=== PATIENT | female | born 1995 | race Caucasian/White ===

== ENCOUNTER 2022-01-23 14:53 | Observation (INO) | payer OTHER, SELFPAY ==
--- NOTE | 2022-01-23 15:23 | DI.US.S_ITS ---
PROCEDURE: US OB FOLLOW UP INDICATIONS: gestational Hypertension, questinable size OUTSIDE/PRIOR DATING DATA: Last menstrual period (LMP): 05/21/2021. LMP-based estimated date of delivery (DEBORAH): 02/25/2022. First dating scan (date and location): 01/23/2022. Estimated date of delivery (DEBORAH) from first dating scan: 02/04/2022. TECHNIQUE: Real-time scanning was performed of the fetus, with image documentation and biometric measurements. COMPARISON: None. FINDINGS: General: A single living intrauterine gestation is present. Presentation: Vertex. Placenta: Placental position is anterior , without previa. Amniotic fluid index: 9.9 cm, normal range is 5-24 cm. Single deepest vertical pocket is 4.1 cm. heart rate: 157 beats per minute. Maternal cervical canal: Not obtained biometrics: Biparietal diameter: 8.8 cm 35 weeks 4 days Head circumference: 33.2 cm 38 weeks 5 days Abdominal circumference: 35.5 cm 39 weeks 3 days Femur length: 7.7 cm 39 weeks 3 days Ultrasound estimated gestational age: 35 weeks 2 days Composite gestational age from present scan: 30 weeks 2 days Estimated weight and percentile: 3593 g, greater than 99th percentile Other: BPP: Tone: 2 Movement: 2 Respiration: 0 Largest pocket: 2 IMPRESSION: Single live into with ultrasound gestational age today of 38 weeks 2 days. BPP 10/22 We strive to produce accurate, complete, and clear reports of imaging services. To assist us in improving patient care, this report was composed using standard report templates and voice recognition software. Therefore, it may contain abnormal punctuation, insertions and/or omissions. Occasional wrong-word or sound-alike substitutions may occur. Though we review the report and make efforts to correct it, we do recommend that the report be read carefully in proper context to recognize any text inaccuracies. Dictated by: Lydia Reinoso M.D. on 01/23/2022 at 17:10 Approved by: Lydia Reinoso M.D. on 01/23/2022 at 17:12
[2022-01-23 15:37] LABS: Aspartate Aminotransferase 24 IU/L (14-36); Blood Urea Nitrogen 6 mg/dL (7-17); Estimated Glomerular Filt Rate > 60 mL/min (>60); Uric Acid 4.2 mg/dL (2.5-6.2)
[2022-01-23 15:41] VITALS: BP 156/86; PULSE 86
[2022-01-23] MEDS: LABETALOL 100 MG TABLET 200 MG PO (15:41)
[2022-01-23 15:43] LABS: Add Manual Diff / Slide Review NO; Basophils Absolute Auto 0 /uL (0-100); Basophils Percent Auto 0.2 % (0-2); Eosinophils Absolute Auto 100 /uL (0-450); Eosinophils Percent Auto 0.7 % (2-4); Hematocrit 33.8 % (36-46); Hemoglobin 11.2 g/dL (12.0-16.0); Lymphocytes Absolute Auto 2800 /uL (1100-4500); Lymphocytes Percent Auto 22.1 % (25-40); Mean Corpuscular Hemoglobin 26.3 PG (26-34); Mean Corpuscular Volume 79.7 fL (80-100); Monocytes Absolute Auto 1000 /uL (0-900); Neutrophils Absolute Auto 8700 /uL (1500-7000); Platelet Count 259 X10^3/uL (150-400); Red Blood Cell Count 4.24 X10^6/uL (4.0-5.2); Red Cell Distribution Width 16.2 % (11.6-14.8); White Blood Cell Count 12.6 X10^3/uL (4.5-11.0)
[2022-01-23 15:49] LABS: Uric Acid 4.2 mg/dL (2.5-6.2)
--- NOTE | 2022-01-23 17:41 | P.TNLD_ITS ---
Visit Information Visit Information Date of evaluation: 01/23/22 Primary OB Provider: Milton Joseph Comments/Additional reasons for admission: Patient presented for her initial OB visit with [facility] earlier today after receiving initial care in [place] followed by care in [place] and now here in [facility]. Initial blood pressure in the office was 160/100 with 1+ protein on dip. Following her initial visit in the office, she was transferred to the [facility] for further evaluation. Since arriving on the , patient's blood pressures have been labile with her maximum blood pressure of 180/86 and her most recent at 5:45 p.m. was 174/83. Vital Signs Vital Signs: Vital Signs - 8 hr 01/23/22 15:41 Pulse Rate 86 Blood Pressure 156/86 H [facility] Medical History (Updated 01/23/22 @ 18:05 by Milton Joseph MD) Obesity Surgical History (Updated 01/20/22 @ 14:41 by Amira Palma RN) H/O oral surgery History of tonsillectomy Family History (Updated 01/20/22 @ 14:45 by Amira Palma RN) Family/Other Breast cancer Grandfather Myocardial infarction Father Hypertension Mother Contact dermatitis Grandmother Obesity Social History marital status: number of children: 0 household members: spouse lives independently: Yes housing: other pets and animals: Yes (1 dog) education level: college occupational status: unemployed current occupational exposures/hazards: No special ish needs: No travel history: recent seatbelt use: always firearms in home: No do you feel safe at home: Yes Smoking Status: Never smoker second hand exposure: No alcohol intake: former substance use type: does not use during the past year weight has: increased > 10 lbs well-balanced diet: rarely or never daily servings fruits/ve-1 caffeine: Yes (ice tea and diet cola occasionally) Type(s) of exercise: walking Exam Vital Signs (past 8 hours): - 01/23/22 15:41 Pulse Rate 86 Blood Pressure 156/86 H Const General: cooperative and anxious Nutritional Appearance: obese Orientation: alert and oriented x3 HENMT Head: normal to inspection, normocephalic and atraumatic Face and sinus: face symmetric Eyes General: appearance normal, both eyes and all related structures Conjunctivae: conjunctivae normal Sclera: sclerae normal Resp Effort & Inspection: normal respiratory effort and able to speak in complete sentences Auscultation: clear to auscultation bilaterally Cardio Rate: regular rate Rhythm: regular rhythm Heart Sounds: S1 normal, S2 normal and no murmurs GI Inspection: normal to inspection Palpation: soft and no hepatosplenomegaly Uterus Location (Fundal Height): 40 Presentation: vertex Estimated Weight (lbs): 8 Neuro Cranial Nerves: CN's II-XI intact bilaterally DTR's: Rt Patellar: 2+ and Lt Patellar: 2+ Extrem Right lower extremity: normal to inspection and edema Details: 1+ Left lower extremity: edema Details: 1+ Psych Appearance: grossly normal Mental Status: mental status grossly normal Speech and Movement: speech and movement normal Mood: congruent mood Affect: normal affect Attitude: cooperative Thought Process: normal Thought Content: normal Judgment: judgment good Objective Imaging OB Growth US and BPP: Radiologist's impression: PROCEDURE:? US OB FOLLOW UP ? INDICATIONS:? gestational Hypertension, questinable size ? OUTSIDE/PRIOR DATING DATA:? Last menstrual period (LMP):? 05/21/2021.? LMP-based estimated date of delivery (DEBORAH):? 02/25/2022.? First dating scan (date and location):? 01/23/2022.? Estimated date of delivery (DEBORAH) from first dating scan:? 02/04/2022. ? TECHNIQUE: Real-time scanning was performed of the fetus, with image documentation and biometric measurements.? ? COMPARISON:? None. ? FINDINGS:? ? General:? A single living intrauterine gestation is present.? Presentation:? Vertex.? Placenta:? Placental position is anterior , without previa.? ? Amniotic fluid index:? 9.9 cm, normal range is 5-24 cm.? Single deepest vertical pocket is 4.1 cm. heart rate:? 157 beats per minute.? Maternal cervical canal:? Not obtained biometrics:? Biparietal diameter:? 8.8 cm 35 weeks 4 days Head circumference:? 33.2 cm 38 weeks 5 days Abdominal circumference:? 35.5 cm 39 weeks 3 days Femur length:? 7.7 cm 39 weeks 3 days Ultrasound estimated gestational age:? 35 weeks 2 days Composite gestational age from present scan:? 38 weeks 2 days Estimated weight and percentile:? 3593 g, greater than 99th percentile ? Other:? ? BPP:? Tone:? 2 ? Movement:? 2 ? Respiration:? 0 ? Largest pocket:? 2 ? IMPRESSION:? ? Single live into with ultrasound gestational age today of 38 weeks 2 days. ? BPP 6/8 Labs Result Diagrams: 01/23/22 15:16 01/23/22 15:16 Labs: Laboratory Results - last 24 hr 01/23/22 01/23/22 01/23/22 15:16 15:16 15:16 WBC 12.6 H RBC 4.24 Hgb 11.2 L Hct 33.8 L MCV 79.7 L MCH 26.3 MCHC 33.0 RDW 16.2 H Plt Count 259 Neut % (Auto) 69.0 Lymph % (Auto) 22.1 L Dunn % (Auto) 8.0 Eos % (Auto) 0.7 L Baso % (Auto) 0.2 Neut # (Auto) 8700 H Lymph # (Auto) 2800 Dunn # (Auto) 1000 H Eos # (Auto) 100 Baso # (Auto) 0 BUN 6 L Creatinine 0.43 L Estimated GFR > 60 BUN/Creatinine Ratio 14.0 Uric Acid 4.2 4.2 AST 24 Evaluation Evaluation Baseline heart rate: 130 Variability: Moderate (11-25) monitor accelerations: Present Monitor Decelerations: Absent Category of Tracing: Reactive Comments: Cervix not assessed Diagnosis, Plan/Disposition Final Diagnosis (1) Size of fetus inconsistent with dates in third trimester: Status: Acute (2) Obesity affecting in third trimester: Status: Acute (3) Pre-eclampsia, severe, antepartum: Status: Acute Plan/Disposition Plan: COVID PCR pending GBS PCR pending PO Labetalol 200 mg IV Labetalol 10 mg IV w/ plans to escalate dosing as needed based on BP response Initiate IV MgSO4; 4 gm bolus, 2 gm infusion Telephone consult with [facility] (Dr. Nica Dupree) who agrees to accept patient in transfer for continued treatment and delivery. Transport TBA via [facility] OB Disposition: tertiary care transfer
[2022-01-23 18:00] VITALS: BP 173/81; PULSE 102
[2022-01-23] MEDS: LABETALOL 20 MG/4 ML SYRINGE 10 MG IV (18:00)
[2022-01-23] MEDS: LACTATED RINGERS 1,000 ML 100 ML IV (18:00)
[2022-01-23] MEDS: MAGNESIUM SULFATE 4 GM/100 ML PIGGYBACK IV (18:17)
[2022-01-23] MEDS: MAGNESIUM SULFATE 20 GM/500 ML IV.SOLN IV (19:14)
[2022-01-23 19:16] LABS: COVID19 -Nasal RAPID POSITIVE (Negative)
[2022-01-23 20:30] LABS: Strep Grp B PCR POS for Grp B Strep
== END 2022-01-23 19:50 | disposition home or self-care (01) ==
PROVIDERS: Admitting Provider Obstetrics & Gynecology; Referring Provider Obstetrics & Gynecology; Visit Provider Obstetrics & Gynecology
DX: O14.13 Severe pre-eclampsia, third trimester (principal); O26.843 Uterine size-date discrepancy, third trimester; O99.213 Obesity complicating pregnancy, third trimester; O16.3 Unspecified maternal hypertension, third trimester; E66.9 Obesity, unspecified; Z3A.35 35 weeks gestation of pregnancy
CPT/HCPCS: 36415; 59025; 59050; 76816; 76819; 82570; 84156; 84450; 84550; 85025; 86850; 86900; 86901; 87491; 87591; 87635; 87653; 96360; C9803; G0378; G0379; J3475

== ENCOUNTER → 2022-01-23 14:57 | Outpatient (ROUT) | payer OTHER, SELFPAY ==
[2022-01-23 15:22] LABS: Protein (Total) Urine Random 27 mg/dL (0-12); Protein Creatinine Ratio Urine 0.31 GRAM/24H
[2022-01-23 16:29] LABS: Urine N gonorrhoeae NOT DETECTED
[2022-01-23 16:58] LABS: Urine Chlamydia NOT DETECTED
== END ==
PROVIDERS: Visit Provider Obstetrics & Gynecology
DX: O16.3 Unspecified maternal hypertension, third trimester (principal); Z3A.35 35 weeks gestation of pregnancy
CPT/HCPCS: 82570; 84156; 87491; 87591

== ENCOUNTER 2022-07-19 14:01 | Emergency (ER) | payer OTHER, SELFPAY ==
[2022-07-19 14:53] VITALS: BP 178/87; PULSE 79; RESP 18; TEMP 36.7; O2SAT 98; BMI 41.1
[2022-07-19] MEDS: LIDOCAINE 1% 20 ML INJ (16:04)
[2022-07-19] MEDS: TET,DIPH,PERTUSS(ACELL),VAC/PF 0.5 ML SYRINGE IM (16:04)
--- NOTE | 2022-07-19 16:43 | ED_ITS ---
HPI - Extremity Injury (Upper) <JAYNE Butterfield - Last Filed: 07/19/22 16:52> General Chief Complaint: Extremity Injury, Upper Stated Complaint: Cut inside of hand by thumb with knife Time Seen by Provider: 07/19/22 15:44 Source: patient Mode of arrival: Ambulatory History of Present Illness HPI narrative: 27-year-old female, never smoker, presents to the emergency department with a left hand laceration. Patient attempted to cut open a toy box with a knife and accidentally cut her thenar aspect of her left hand. Patient is overdue for her tetanus. Related Data Home Medications Medication Instructions Recorded Confirmed aspirin 81 mg tablet,delayed 81 mg PO DAILY 01/20/22 03/19/22 release (Adult Aspirin Regimen) ferrous sulfate 325 mg (65 mg 325 mg PO DAILY 01/20/22 03/19/22 iron) tablet labetalol 100 mg tablet 200 mg PO Q8H 01/30/22 03/19/22 Previous Rx's Medication Instructions Recorded norethindrone (contraceptive) 0.35 0.35 mg PO DAILY #84 tabs 02/13/22 mg tablet (Ortho Micronor) Allergies Allergy/AdvReac Type Severity Reaction Status Date / Time No Known Allergies Allergy Verified 03/19/22 10:43 Review of Systems <JAYNE Butterfield - Last Filed: 07/19/22 16:52> Review of Systems Narrative: Narrative: See HPI. GENERAL: Denies chills, fatigue, fever, sweats. HEENT: Denies sinus pain, ear pain, sore throat, difficulty swallowing, dizziness. RESPIRATORY: Denies dyspnea, cough, wheezing, sputum. CARDIOVASCULAR: Denies chest pain, palpitations, edema. GASTROINTESTINAL: Denies nausea, vomiting, abdominal pain, diarrhea, constipation. : Denies dysuria, frequency, incontinence, hematuria, urinary retention, flank pain. MSK: Denies weakness, joint pain, or bony pain. SKIN: Denies rash, skin lesions, or pruritis. Endorses laceration to left palm. NEUROLOGIC: Denies weakness, dizziness, headache, numbness, confusion. PSYCHIATRIC: No concerning psychosocial issues. Patient History <JAYNE Butterfield - Last Filed: 07/19/22 16:52> Medical History Obesity Surgical History H/O oral surgery History of tonsillectomy Family History Family/Other Breast cancer Grandfather Myocardial infarction Father Hypertension Mother Contact dermatitis Grandmother Obesity Social History marital status: number of children: 0 household members: spouse lives independently: Yes housing: other pets and animals: Yes (1 dog) education level: college occupational status: unemployed current occupational exposures/hazards: No special ish needs: No travel history: recent seatbelt use: always firearms in home: No do you feel safe at home: Yes Smoking Status: Never smoker second hand exposure: No alcohol intake: former substance use type: does not use during the past year weight has: increased > 10 lbs well-balanced diet: rarely or never daily servings fruits/ve-1 caffeine: Yes (ice tea and diet cola occasionally) Type(s) of exercise: walking Smoking Status: Never smoker alcohol intake frequency: a few times a month Substance Use Type: does not use Exam <JAYNE Butterfield - Last Filed: 07/19/22 16:52> Narrative Exam Narrative: Exam Narrative: GENERAL: This is a well-nourished, well-developed patient, in no acute distress. HEAD: Atraumatic. Normocephalic. EYES: Pupils equal round and reactive. No scleral icterus, injection or drainage. ENT: Nose without bleeding, purulent drainage. Airway patent. NECK: Trachea midline. No JVD. RESPIRATORY: Normal respiratory rate and effort. MSK: Moves all extremities. Normal range of motion, no clubbing or edema. Neurovascularly intact. NEURO: A&O x 3. SKIN: Warm, dry, no rashes or lesions noted. 1 cm laceration to left thenar region. Initial Vital Signs Initial Vital Signs: Vital Signs Temperature 98.1 F 07/19/22 14:53 Pulse Rate 79 07/19/22 14:53 Respiratory Rate 18 07/19/22 14:53 Blood Pressure 178/87 H 07/19/22 14:53 Pulse Oximetry 98 07/19/22 14:53 Oxygen Delivery Method Room Air 07/19/22 14:53 Reviewed <Fransisca Anne DO - Last Filed: 07/24/22 08:04> Initial Vital Signs Initial Vital Signs: Vital Signs Temperature 98.1 F 07/19/22 14:53 Pulse Rate 79 07/19/22 14:53 Respiratory Rate 18 07/19/22 14:53 Blood Pressure 178/87 H 07/19/22 14:53 Pulse Oximetry 98 07/19/22 14:53 Oxygen Delivery Method Room Air 07/19/22 14:53 Course <JAYNE Butterfield - Last Filed: 07/19/22 16:52> Orders Ordered: Discontinued Medications Diphtheria/Tetanus/Acell Pertussis (Tet,Diph,Pertuss(Acell),Vac/Pf 0.5 Ml Syringe) 0.5 ml IM .ONCE ONE Stop: 07/19/22 15:08 Last Admin: 07/19/22 16:04 Dose: 0.5 ml Documented By: EDWIN Lidocaine HCl (Lidocaine 1% 20 Ml) 20 ml INJ INTRA-OP ONE Stop: 07/19/22 16:02 Last Admin: 07/19/22 16:04 Dose: 20 ml Documented By: EDWIN Vital Signs Vital signs: Vital Signs - 8 hr 07/19/22 14:53 Temperature 98.1 F Pulse Rate 79 Respiratory Rate 18 Blood Pressure 178/87 H Pulse Oximetry 98 Oxygen Delivery Method Room Air <Fransisca Anne DO - Last Filed: 07/24/22 08:04> Orders Ordered: Discontinued Medications Diphtheria/Tetanus/Acell Pertussis (Tet,Diph,Pertuss(Acell),Vac/Pf 0.5 Ml Syringe) 0.5 ml IM .ONCE ONE Stop: 07/19/22 15:08 Last Admin: 07/19/22 16:04 Dose: 0.5 ml Documented By: EDWIN Lidocaine HCl (Lidocaine 1% 20 Ml) 20 ml INJ INTRA-OP ONE Stop: 07/19/22 16:02 Last Admin: 07/19/22 16:04 Dose: 20 ml Documented By: EDWIN Vital Signs Vital signs: Vital Signs - 8 hr 07/19/22 14:53 Temperature 98.1 F Pulse Rate 79 Respiratory Rate 18 Blood Pressure 178/87 H Pulse Oximetry 98 Oxygen Delivery Method Room Air MDM - Extremity Injury (Upper) <JAYNE Butterfield - Last Filed: 07/19/22 16:52> Differential Diagnosis Differential diagnosis: Likely other (Laceration of left hand) MDM Narrative Medical decision making narrative: 27-year-old female presents to the emergency department with a left hand laceration. Site was cleansed, anesthetized and closed with 3 sutures. Patient tolerated procedure well. Tetanus status updated. Discussed proper wound care with patient and with instructions to return to clinic, family doctor or emergency department in 10-14 days for suture removal. Recommended Tylenol or ibuprofen as needed for discomfort and ice and elevation for swelling. Patient and verbalized understanding and were agreeable with course of action. Discharge Plan Departure Patient Disposition: Home Clinical Impression: Laceration of hand Instructions: DI for Laceration Repair Activity Restrictions/Additional Instructions: *You have been diagnosed with left hand laceration. I Was able to close laceration with 3 sutures. Please follow-up with your family doctor, [place] walk-in [facility] or the emergency department in 10-14 days for suture removal. As we discussed, keep the area clean and dry as possible. You may apply antibiotic ointment daily and use a standard Band-Aid. Please watch for signs of infection that include increased redness, swelling, yellow discharge. If this occurs, please present to your family doctor, urgent care or the emergency department for possible antibiotic therapy. You may use Tylenol or ibuprofen as needed for discomfort and elevate the hand above your heart to reduce swelling. *What to do: *Please continue to take your regular medications as directed. [ ] New medication prescriptions sent to your pharmacy: [ ] [ ] New medication written as a paper prescription [x ] No new medications given *Please follow up with your primary care provider in 2-3 days, call for an appointment. Let them know you were seen in the Emergency Department and that we ask that you be seen in follow up. We will electronically transmit a record of today's note if your PCP is in our system *If you do not have a primary care provider please contact the [facility] Resource line at [phone]. They will ask some questions about your medical history and help get you set up with a doctor in the community. ? Return to ER if you should have any new, worsening or concerning symptoms, such as worsening pain, severe headache, confusion, chest pain, difficulty breathing, fever greater than 101 F, shaking chills, persistent vomiting to the point that you cannot drink fluids, or other new or worsening symptoms. Prescriptions: No Action ferrous sulfate 325 mg (65 mg iron) tablet 325 mg PO DAILY aspirin [Adult Aspirin Regimen] 81 mg tablet,delayed release (DR/EC) 81 mg PO DAILY labetalol 100 mg tablet 200 mg PO Q8H norethindrone (contraceptive) [Ortho Micronor] 0.35 mg tablet 0.35 mg PO DAILY Qty: 84 4RF Referrals: Miscellaneous,Doctor, MD [Primary Care Provider] - Stand Alone Forms: Patient Portal/API <Fransisca Anne DO - Last Filed: 07/24/22 08:04> Cosign ED Attending Cosignature Attestation: I was immediately available in the department for consultation. Documentation has been reviewed.
[2022-07-19 16:56] VITALS: BP 150/70; PULSE 75; RESP 18; O2SAT 98
== END 2022-07-19 17:00 | disposition home or self-care (01) ==
PROVIDERS: Emergency Provider Registered Nurse
DX: S61.412A Laceration without foreign body of left hand, initial encounter (principal); W26.0XXA Contact with knife, initial encounter; Z23 Encounter for immunization
CPT/HCPCS: 12001; 90471; 99283; 99284; 90715

== ENCOUNTER → 2022-10-01 06:51 | Outpatient (CLI) | payer OTHER, SELFPAY ==
--- NOTE | 2022-10-01 06:52 | DI.US.S_ITS ---
PROCEDURE: US PELVIC COMPLETE INDICATIONS: check IUD placement TECHNIQUE: Real-time scanning was performed of the pelvic organs, with image documentation. Additional endovaginal scanning was necessary due to incomplete visualization of the adnexal and endometrial structures by transabdominal scanning. COMPARISON: [facility], US, US PELVIC COMPLETE, 02/24/2022, 16:46. FINDINGS: Uterus: Uterus is anteverted and normal in size at 7.5 x 5.1 x 3.6 cm. The myometrium is homogeneous. The endometrium measures 3 mm combined thickness. An IUD is present which appears low lying at the lower uterine segment/endocervical canal. Ovaries: The right ovary measures 3.3 x 2.0 x 2.3 cm, with a calculated ovarian volume of 8 cc. The left ovary measures 3.8 x 2.4 x 1.8 cm, with a calculated ovarian volume of 9 cc. The ovaries have a normal sonographic appearance. Less than 12 follicles can be seen in each ovary. No adnexal masses are seen. Other: No pathologic free abdominal or pelvic fluid. IMPRESSION: An IUD is present in appears low lying at the lower uterine segment/endocervical canal. We strive to produce accurate, complete, and clear reports of imaging services. To assist us in improving patient care, this report was composed using standard report templates and voice recognition software. Therefore, it may contain abnormal punctuation, insertions and/or omissions. Occasional wrong-word or sound-alike substitutions may occur. Though we review the report and make efforts to correct it, we do recommend that the report be read carefully in proper context to recognize any text inaccuracies. Dictated by: lBake Borges M.D. on 10/01/2022 at 8:29 Approved by: Blake Borges M.D. on 10/01/2022 at 8:39
== END ==
PROVIDERS: Referring Provider Obstetrics & Gynecology; Visit Provider Obstetrics & Gynecology
DX: Z30.431 Encounter for routine checking of intrauterine contraceptive device (principal)
CPT/HCPCS: 76830; 76856

== ENCOUNTER 2022-10-06 20:12 | Emergency (ER) | payer OTHER, SELFPAY ==
[2022-10-06 20:20] VITALS: BP 175/89; PULSE 96; RESP 16; TEMP 36.4; O2SAT 98; BMI 41.1
[2022-10-06 20:55] LABS: Bacteria Urine Occasional (0-1); Culture Indicated Urine Cult Not Indicated; RBC Urine 1-5/HPF (0-5/HPF); Squamous Epithelial Cell Urine 5-10 /HPF (0-5/HPF); WBC Urine 0-1/HPF (0-5/HPF)
--- NOTE | 2022-10-06 22:34 | DI.US.S_ITS ---
PROCEDURE: US PELVIC COMPLETE INDICATIONS: CHECK IUD PLACEMENT; PAIN TECHNIQUE: Real-time scanning was performed of the pelvic organs, with image documentation. Additional endovaginal scanning was necessary due to incomplete visualization of the adnexal and endometrial structures by transabdominal scanning. COMPARISON: [facility], US, US PELVIC COMPLETE, 10/01/2022, 7:10. FINDINGS: Uterus: Uterus is anteverted and measures 7.4 x 3.2 x 3.9 cm. The endometrium measures approximately 0.2 cm. An IUD is again demonstrated extending into the endometrium within the lower uterine segment. Ovaries: The right ovary measures 2.5 x 3.6 x 2.3 cm, with a calculated ovarian volume of 10.8 cc. The left ovary measures 1.8 x 2.5 x 1.7 cm, with a calculated ovarian volume of 3.9 cc. The ovaries have a normal sonographic appearance. Less than 12 follicles can be seen in each ovary. No adnexal masses are seen. There is patent arterial flow demonstrated in the left ovary. Other: No pathologic free abdominal or pelvic fluid. IMPRESSION: 1. IUD extending into the lower uterine segment of the endometrium is redemonstrated. We strive to produce accurate, complete, and clear reports of imaging services. To assist us in improving patient care, this report was composed using standard report templates and voice recognition software. Therefore, it may contain abnormal punctuation, insertions and/or omissions. Occasional wrong-word or sound-alike substitutions may occur. Though we review the report and make efforts to correct it, we do recommend that the report be read carefully in proper context to recognize any text inaccuracies. Dictated by: Con Cloud M.D. on 10/07/2022 at 0:29 Approved by: Con Cloud M.D. on 10/07/2022 at 0:33
--- NOTE | 2022-10-06 22:34 | ED.GENADULT ---
HPI - General Adult General Chief complaint: OB/Uterine Contractions Stated complaint: thinks something wrong with IUD, nausea Time Seen by Provider: 10/06/22 20:33 Source: patient Mode of arrival: Family Vehicle Limitations: no limitations History of Present Illness HPI narrative: Patient is a 27-year-old female who is here because she is having some lower abdominal discomfort. She states she has been unable to feel any of her IUD strings. She contacted the OB department who requested that she have a ultrasound which she did back on the . She is not heard the results of this. She also states that today she has had some periodic episodes of lightheadedness and nausea. No fevers. Chest pain. No palpitations. No vaginal bleeding. Related Data Home Medications Medication Instructions Recorded Confirmed aspirin 81 mg tablet,delayed 81 mg PO DAILY 01/20/22 03/19/22 release (Adult Aspirin Regimen) ferrous sulfate 325 mg (65 mg 325 mg PO DAILY 01/20/22 03/19/22 iron) tablet labetalol 100 mg tablet 200 mg PO Q8H 01/30/22 03/19/22 Previous Rx's Medication Instructions Recorded norethindrone (contraceptive) 0.35 0.35 mg PO DAILY #84 tabs 02/13/22 mg tablet (Ortho Micronor) Allergies Allergy/AdvReac Type Severity Reaction Status Date / Time No Known Allergies Allergy Verified 10/06/22 20:23 Review of Systems Respiratory Respiratory: Reports system reviewed and no additional complaints, except as documented Gastrointestinal Gastrointestinal: Reports system reviewed and no additional complaints, except as documented Genitourinary Genitourinary: Reports system reviewed and no additional complaints, except as documented Integumentary/Breasts Skin/Breast: Reports system reviewed and no additional complaints, except as documented Hematologic/Lymphatic On Anticoagulants: No Patient History Medical History Obesity Surgical History H/O oral surgery History of tonsillectomy Family History Family/Other Breast cancer Grandfather Myocardial infarction Father Hypertension Mother Contact dermatitis Grandmother Obesity Social History marital status: number of children: 0 household members: spouse lives independently: Yes housing: other pets and animals: Yes (1 dog) education level: college occupational status: unemployed current occupational exposures/hazards: No special ish needs: No travel history: recent seatbelt use: always firearms in home: No do you feel safe at home: Yes Smoking Status: Never smoker second hand exposure: No alcohol intake: former substance use type: does not use during the past year weight has: increased > 10 lbs well-balanced diet: rarely or never daily servings fruits/ve-1 caffeine: Yes (ice tea and diet cola occasionally) Type(s) of exercise: walking Smoking Status: Never smoker alcohol intake frequency: a few times a month Substance Use Type: does not use Exam Initial Vital Signs Initial Vital Signs: Vital Signs Temperature 97.6 F 10/06/22 20:20 Pulse Rate 96 H 10/06/22 20:20 Respiratory Rate 16 10/06/22 20:20 Blood Pressure 175/89 H 10/06/22 20:20 Pulse Oximetry 98 10/06/22 20:20 Oxygen Delivery Method Room Air 10/06/22 20:20 Const General: cooperative, comfortable and No ill appearing HENMT Head: normal to inspection and normocephalic GI Inspection: normal to inspection and non-distended Other: With nursing at bedside pelvic exam was performed. No IUD strings noted through the cervical os. No vaginal bleeding. Skin General: no rashes or lesions noted Neuro General: patient alert, patient awake and moves all extremities Course Orders Ordered: ED Orders 10/06/22 20:27 Urine Microscopic Stat 10/06/22 22:34 US pelvic complete Stat Discontinued Medications Ondansetron HCl (Ondansetron 4 Mg/2 Ml Inj) 4 mg IV NOW ONE Stop: 10/06/22 23:35 Last Admin: 10/06/22 23:49 Dose: Not Given Documented By: SB Vital Signs Vital signs: Vital Signs - 8 hr 10/06/22 20:20 Temperature 97.6 F Pulse Rate 96 H Respiratory Rate 16 Blood Pressure 175/89 H Pulse Oximetry 98 Oxygen Delivery Method Room Air Medical Decision Making Lab Data Lab results reviewed: Yes I reviewed the patient's lab results. Labs: Lab Results 10/06/22 Range/Units 20:27 Urine RBC 1-5/hpf (0-5/HPF) Urine WBC 0-1/hpf (0-5/HPF) Ur Squamous Epith Cells 5-10 /hpf H (0-5/HPF) Urine Bacteria Occasional (0-1) (None) Ur Culture Indicated? Cult not indicated Point of Care Testing Test Results Negative Urine Dip Bedside Urine Glucose Negative Bedside Urine Bilirubin - Negative Bedside Urine Ketone - Negative Urine Specific Lutsen 1.010 Bedside Urine Occult Blood +/- Bedside Urine pH 6.0 Bedside Urine Protein +/- 15 Bedside Urine Urobilinogen - Negative Bedside Urine Nitrite - Negative Bedside Urine Leukocytes - Negative Esterase Point of care testing: Point of Care Testing Test Results Negative Urine Dip Bedside Urine Glucose Negative Bedside Urine Bilirubin - Negative Bedside Urine Ketone - Negative Urine Specific Lutsen 1.010 Bedside Urine Occult Blood +/- Bedside Urine pH 6.0 Bedside Urine Protein +/- 15 Bedside Urine Urobilinogen - Negative Bedside Urine Nitrite - Negative Bedside Urine Leukocytes - Negative Esterase Imaging Data US - GENERAL MACHINE OPERATOR: Radiologist's Impression: PROCEDURE:? US PELVIC COMPLETE ? INDICATIONS:? CHECK IUD PLACEMENT; PAIN ? TECHNIQUE:? Real-time scanning was performed of the pelvic organs, with image documentation.? Additional endovaginal scanning was necessary due to incomplete visualization of the adnexal and endometrial structures by transabdominal scanning.? ? COMPARISON:? [facility], , US PELVIC COMPLETE, 10/01/2022, 7:10. ? FINDINGS:? ?? Uterus:? Uterus is anteverted and measures 7.4 x 3.2 x 3.9 cm. The endometrium measures approximately 0.2 cm.? An IUD is again demonstrated extending into the endometrium within the lower uterine segment.? ? Ovaries:? The right ovary measures 2.5 x 3.6 x 2.3 cm, with a calculated ovarian volume of 10.8 cc. The left ovary measures 1.8 x 2.5 x 1.7 cm, with a calculated ovarian volume of 3.9 cc. The ovaries have a normal sonographic appearance. Less than 12 follicles can be seen in each ovary.? No adnexal masses are seen.? There is patent arterial flow demonstrated in the left ovary. ? Other:? No pathologic free abdominal or pelvic fluid. ? ? IMPRESSION:? ? 1. IUD extending into the lower uterine segment of the endometrium is redemonstrated. MDM Narrative Medical decision making narrative: No IUD strings were seen through the cervical os however the ultrasound today does show that the IUD is in the uterus. I recommended that she contacted the OB provider for a follow-up to discuss further evaluation of this. The rest of her presenting symptoms today are fairly vague without any specific cause. No fevers. No indication for antibiotics. Patient is tolerating oral intake. Will discharge patient home with return precautions. She expressed understanding and agreement. Discharge Plan Departure Patient Disposition: Home Clinical Impression: Abdominal pain Instructions: DI for Abdominal Pain-Adult Activity Restrictions/Additional Instructions: I do recommend that you continue to take all of your medications as directed and contact the OB doctor when they open later today for follow-up appointment. Prescriptions: No Action ferrous sulfate 325 mg (65 mg iron) tablet 325 mg PO DAILY aspirin [Adult Aspirin Regimen] 81 mg tablet,delayed release (DR/EC) 81 mg PO DAILY labetalol 100 mg tablet 200 mg PO Q8H norethindrone (contraceptive) [Ortho Micronor] 0.35 mg tablet 0.35 mg PO DAILY Qty: 84 4RF Referrals: Milton Joseph MD [Primary Care Provider] - Stand Alone Forms: Patient Portal/API
== END 2022-10-07 01:12 | disposition home or self-care (01) ==
PROVIDERS: Emergency Provider Emergency Medicine; PCP Obstetrics & Gynecology
DX: R10.30 Lower abdominal pain, unspecified (principal); Z97.5 Presence of (intrauterine) contraceptive device
CPT/HCPCS: 76830; 76856; 81003; 81015; 81025; 93976; 99282; 99283

== ENCOUNTER 2023-05-07 14:23 | Emergency (ER) | payer OTHER, SELFPAY ==
[2023-05-07] VITALS (11 sets, daily range): BP systolic 142–174; BP diastolic 74–94; PULSE 74–93; RESP 16–22; TEMP 36.1; O2SAT 96–100; BMI 42.4
--- NOTE | 2023-05-07 17:30 | DI.RAD.S_ITS ---
PROCEDURE: XR CHEST 1V INDICATIONS: chest pain TECHNIQUE: One view of the chest was acquired. COMPARISON: None. FINDINGS: Surgical changes and devices: None. Lungs and pleura: Mildly low lung volumes. No airspace consolidation or pleural effusion. Mediastinum: Heart size is at the upper limit of normal. Bones and chest wall: No acute or suspicious findings. IMPRESSION: Single view radiograph with low lung volumes. No acute abnormality. Dictated by: Fox Varela M.D. on 05/07/2023 at 19:02 Approved by: Fox Varela M.D. on 05/07/2023 at 19:02
[2023-05-07 17:57] LABS: INR 1.1 (0.9-1.3); Prothrombin Time 12.5 SECONDS (9.4-12.5)
[2023-05-07 18:00] LABS: PTT Partial Thromboplastin Tim 35 SECONDS (25.1-36.5)
[2023-05-07 18:03] LABS: Alanine Aminotransferase 22 IU/L (<35); Albumin 4.6 g/dL (3.5-5.0); Albumin Globulin Ratio 1.4 (1.0-2.8); Alkaline Phosphatase 79 U/L (38-126); Aspartate Aminotransferase 24 IU/L (14-36); BUN Creatinine Ratio 20.4 (6-22); Bilirubin Total 0.4 mg/dL (0.2-1.3); Blood Urea Nitrogen 10 mg/dL (7-17); Carbon Dioxide 25 mmol/L (22-32); Chloride 103 mmol/L (98-107); Creatine Kinase 140 U/L (30-135); Estimated Glomerular Filt Rate > 60 mL/min (>60); Globulin 3.4 g/dL (1.7-4.1); Glucose 104 mg/dL (70-100); HEMOLYSIS < 15 (0-50); Lipase 85 U/L (23-300); Magnesium 1.9 mg/dL (1.6-2.3); Potassium 3.9 mmol/L (3.4-5.1); Sodium 137 mmol/L (137-145)
[2023-05-07 18:04] LABS: Add Manual Diff / Slide Review NO; Basophils Absolute Auto 0 /uL (0-100); Basophils Percent Auto 0.3 % (0-2); Eosinophils Absolute Auto 100 /uL (0-450); Eosinophils Percent Auto 0.7 % (2-4); Hematocrit 36.8 % (36-46); Hemoglobin 12.2 g/dL (12.0-16.0); Lymphocytes Absolute Auto 3700 /uL (1100-4500); Lymphocytes Percent Auto 34.8 % (25-40); Mean Corpuscular HGB Conc 33.2 % (30-36); Mean Corpuscular Hemoglobin 25.3 PG (26-34); Mean Corpuscular Volume 76.2 fL (80-100); Monocytes Absolute Auto 700 /uL (0-900); Monocytes Percent Auto 6.9 % (3-14); Neutrophils Absolute Auto 6100 /uL (1500-7000); Neutrophils Percent Auto 57.3 % (50-75); Platelet Count 290 X10^3/uL (150-400); Red Blood Cell Count 4.83 X10^6/uL (4.0-5.2); White Blood Cell Count 10.7 X10^3/uL (4.5-11.0)
[2023-05-07 18:14] LABS: Troponin I < 0.012 ng/mL (0.01-0.034)
--- NOTE | 2023-05-07 19:19 | DI.CT.S_ITS ---
PROCEDURE: CT HEAD/BRAIN WO CON INDICATIONS: dizziness TECHNIQUE: Noncontrast 4.5 mm thick angled axial sections acquired from the foramen magnum to the vertex, with coronal and sagittal reformats. For radiation dose reduction, the following was used: automated exposure control, adjustment of mA and/or kV according to patient size. COMPARISON: None. FINDINGS: Image quality: Good CSF spaces: Basal cisterns are patent. Lateral ventricles are symmetric. Volume: Generally maintained. Brain: No intracranial hemorrhage. Ware-white differentiation is grossly maintained. Craniofacial structures: No displaced fracture. Sinuses are clear. Orbits are intact. IMPRESSION: No acute intracranial abnormality. If there is high concern for parenchymal pathology, consider further evaluation with MRI. Dictated by: Fox Varela M.D. on 05/07/2023 at 19:47 Approved by: Fox Varela M.D. on 05/07/2023 at 19:48
--- NOTE | 2023-05-07 20:16 | ED.DIZZY ---
HPI - Dizziness General Chief Complaint: Dizziness Stated Complaint: High BP/dizzy Time Seen by Provider: 05/07/23 14:45 Source: patient and family Mode of arrival: Ambulatory History of Present Illness HPI Narrative: This 27-year-old female with a history of obesity and preeclampsia presenting with dizziness today. Also noted her blood pressures were high at home. The patient does not have established primary care provider and by report does not have a history of hypertension although did have preeclampsia with . Today she woke up and felt dizzy. Says it got worse when she was up moving around. It was not associated with particular head positions it was not associated with a headache she did have a little bit of nausea she felt a little bit lightheaded and a little weak also. Her blood pressures were also noted to be high at home on her home monitor. She did not have chest pain, get short of breath with exertion this is not a new problem however. Patient and her state that they use protection and she does not believe that she is . She is not taking any regular medications at this point. She does not smoke she does not have a family history of early stroke. Related Data Home Medications Medication Instructions Recorded Confirmed labetalol 100 mg tablet 200 mg PO Q8H 01/30/22 10/16/22 Previous Rx's Medication Instructions Recorded norethindrone (contraceptive) 0.35 0.35 mg PO DAILY #84 tabs 02/13/22 mg tablet (Ortho Micronor) norgestimate 0.18 mg/0.215 mg/0.25 1 tab PO DAILY #84 tabs 10/16/22 mg-ethinyl estradiol 25 mcg tablet meclizine 25 mg tablet 25 mg PO TID dizziness #20 tabs 05/07/23 Allergies Allergy/AdvReac Type Severity Reaction Status Date / Time No Known Allergies Allergy Verified 10/16/22 13:56 Patient History Medical History Obesity Surgical History H/O oral surgery History of tonsillectomy Family History Family/Other Breast cancer Grandfather Myocardial infarction Father Hypertension Mother Contact dermatitis Grandmother Obesity Social History (Reviewed 10/07/22 @ 01:01 by CARSON Dale marital status: number of children: 0 household members: spouse lives independently: Yes housing: other pets and animals: Yes (1 dog) education level: college occupational status: unemployed current occupational exposures/hazards: No special ish needs: No travel history: recent seatbelt use: always firearms in home: No do you feel safe at home: Yes Smoking Status: Never smoker second hand exposure: No alcohol intake: former substance use type: does not use during the past year weight has: increased > 10 lbs well-balanced diet: rarely or never daily servings fruits/ve-1 caffeine: Yes (ice tea and diet cola occasionally) Type(s) of exercise: walking Smoking Status: Never smoker alcohol intake frequency: holidays/special occasions only Substance Use Type: does not use Exam Initial Vital Signs Initial Vital Signs: Vital Signs Temperature 97.0 F L 05/07/23 14:29 Pulse Rate 93 H 05/07/23 14:29 Respiratory Rate 16 05/07/23 14:29 Blood Pressure 168/83 H 05/07/23 14:29 Pulse Oximetry 96 05/07/23 14:29 Oxygen Delivery Method Room Air 05/07/23 14:29 Const General: No acute distress HENMT Head: normocephalic and atraumatic Eyes Pupils: PERRL EOM: EOM intact bilaterally and No nystagmus Neck Carotids: no bruits Resp Effort & Inspection: normal respiratory effort Auscultation: clear to auscultation bilaterally Cardio Rate: regular rate Rhythm: regular rhythm Heart Sounds: S1 normal, S2 normal and no murmurs Skin General: dry skin and warm Neuro Cranial Nerves: No nystagmus Other: Speech is fluent, no ataxia, no motor weakness. Sensation is intact x4 Course Orders Ordered: ED Orders 05/07/23 17:30 XR chest 1V Stat Complete Blood Count AUTO DIFF Stat Comprehensive Metabolic Panel Stat Lipase Stat Magnesium Stat PTT Partial Thromboplastin Matt Stat Prothrombin Time INR Stat Troponin & CK Cardiac Panel Stat EKG-12 Lead Stat 05/07/23 19:19 CT head/brain wo con Stat Vital Signs Vital signs: Vital Signs - 8 hr 05/07/23 14:29 05/07/23 17:01 05/07/23 17:01 Temperature 97.0 F L Pulse Rate 93 H 79 Respiratory Rate 16 Blood Pressure 168/83 H 174/94 H Pulse Oximetry 96 100 Oxygen Delivery Method Room Air 05/07/23 17:30 05/07/23 17:31 05/07/23 17:31 Temperature Pulse Rate 75 74 Respiratory Rate Blood Pressure 151/79 H Pulse Oximetry 99 99 Oxygen Delivery Method 05/07/23 18:00 05/07/23 18:00 05/07/23 18:22 Temperature Pulse Rate 84 Respiratory Rate 20 Blood Pressure 166/84 H 163/74 H Pulse Oximetry 99 Oxygen Delivery Method 05/07/23 18:22 05/07/23 18:30 05/07/23 19:00 Temperature Pulse Rate 81 74 81 Respiratory Rate 20 21 Blood Pressure Pulse Oximetry 98 96 97 Oxygen Delivery Method 05/07/23 19:35 05/07/23 20:00 Temperature Pulse Rate 87 81 Respiratory Rate 22 Blood Pressure Pulse Oximetry 98 98 Oxygen Delivery Method MDM - Dizziness Lab Data Lab results narrative: CBC with diff and CMP are unremarkable INR is normal 05/07/23 17:30 05/07/23 17:30 Labs: Lab Results 05/07/23 Range/Units 17:30 WBC 10.7 (4.5-11.0) X10^3/uL RBC 4.83 (4.0-5.2) X10^6/uL Hgb 12.2 (12.0-16.0) g/dL Hct 36.8 (36-46) % MCV 76.2 L (80-100) fL MCH 25.3 L (26-34) PG MCHC 33.2 (30-36) % RDW 15.0 H (11.6-14.8) % Plt Count 290 (150-400) X10^3/uL Neut % (Auto) 57.3 (50-75) % Lymph % (Auto) 34.8 (25-40) % Navarro % (Auto) 6.9 (3-14) % Eos % (Auto) 0.7 L (2-4) % Baso % (Auto) 0.3 (0-2) % Neut # (Auto) 6100 (3420-4376) /uL Lymph # (Auto) 3700 (6203-1767) /uL Navarro # (Auto) 700 (0-900) /uL Eos # (Auto) 100 (0-450) /uL Baso # (Auto) 0 (0-100) /uL PT 12.5 (9.4-12.5) SECONDS INR 1.1 (0.9-1.3) APTT 35 (25.1-36.5) SECONDS Sodium 137 (137-145) mmol/L Potassium 3.9 (3.4-5.1) mmol/L Chloride 103 (98-107) mmol/L Carbon Dioxide 25 (22-32) mmol/L BUN 10 (7-17) mg/dL Creatinine 0.49 L (0.52-1.04) mg/dL Estimated GFR > 60 (>60) mL/min BUN/Creatinine Ratio 20.4 (6-22) Glucose 104 H (70-100) mg/dL Calcium 10.0 (8.4-10.2) mg/dL Magnesium 1.9 (1.6-2.3) mg/dL Total Bilirubin 0.4 (0.2-1.3) mg/dL AST 24 (14-36) IU/L ALT 22 (<35) IU/L Alkaline Phosphatase 79 (38-126) U/L Total Creatine Kinase 140 H (30-135) U/L Troponin I < 0.012 (0.01-0.034) ng/mL Total Protein 8.0 (6.3-8.2) g/dL Albumin 4.6 (3.5-5.0) g/dL Globulin 3.4 (1.7-4.1) g/dL Albumin/Globulin Ratio 1.4 (1.0-2.8) Lipase 85 (23-300) U/L Imaging Data CT scan - head: My Impression: Independent review of CT head no acute disease Radiologist's Impression: Reviewed radiology report, no acute finding see their separate dictation ECG Data Interpretation: ECG shows normal sinus rhythm normal rate no acute ST segment changes intervals are normal this is a normal EKG MDM Narrative Medical decision making narrative: 27-year-old female with obesity and possibly untreated hypertension presenting with an episode of dizziness today. Symptoms have resolved. She does not have any nystagmus or weakness on neuro exam. I have a low suspicion that this is a stroke, noncontrast CT of the head was obtained and is negative. It is possible that this is BPPV however history is does not really suggestive of that. She does not currently have symptoms so I do not think it is vestibular neuronitis. At this point given her benign presentation now I think it is safe to discharge her home. I did recommend she establish primary care we discussed measuring home blood pressures. I did provide prescription for meclizine use if she has recurrent dizziness and indications to return to the ED were reviewed Discharge Plan Departure Patient Disposition: Home Clinical Impression: Dizziness Hypertension Qualifiers: Hypertension type: unspecified Qualified Code(s): I10 - Essential (primary) hypertension Instructions: DI for Dizziness-Nonvertigo Activity Restrictions/Additional Instructions: Examination today is reassuring. I do not think that there is a serious cause. Dizziness. I have provided a prescription for meclizine that you may use as needed if you are having symptoms of dizziness. Check your blood pressure 2 to 3 times a week and record blood pressure, bring this with you when you see your new primary care provider. I recommend you get a primary care provider as soon as possible. If you are having chest pain disabling dizziness uncontrolled vomiting severe headache or other acute symptoms recheck in the emergency department. Establish primary care as soon as possible. Prescriptions: New meclizine 25 mg tablet 25 mg PO TID Qty: 20 0RF No Action labetalol 100 mg tablet 200 mg PO Q8H norethindrone (contraceptive) [Ortho Micronor] 0.35 mg tablet 0.35 mg PO DAILY Qty: 84 4RF norgestimate-ethinyl estradiol 0.18/0.215/0.25 mg-25 mcg tablet 1 tab PO DAILY Qty: 84 3RF Referrals: Miscellaneous,Doctor, [Primary Care Provider] - Stand Alone Forms: Patient Portal/API
== END 2023-05-07 20:17 | disposition home or self-care (01) ==
PROVIDERS: Emergency Medicine; Emergency Provider Emergency Medicine
DX: R42 Dizziness and giddiness (principal); I10 Essential (primary) hypertension
CPT/HCPCS: 36415; 70450; 71045; 80053; 82550; 83690; 83735; 84484; 85025; 85610; 85730; 93005; 93010; 99284

== ENCOUNTER → 2023-07-27 12:05 | Outpatient (CLI) | payer OTHER, SELFPAY ==
[2023-07-27 14:03] LABS: Add Manual Diff / Slide Review NO; Basophils Absolute Auto 0 /uL (0-100); Basophils Percent Auto 0.3 % (0-2); Eosinophils Absolute Auto 100 /uL (0-450); Eosinophils Percent Auto 1.1 % (2-4); Hematocrit 37.1 % (36-46); Hemoglobin 12.2 g/dL (12.0-16.0); Lymphocytes Absolute Auto 3300 /uL (1100-4500); Lymphocytes Percent Auto 35.1 % (25-40); Mean Corpuscular HGB Conc 32.8 % (30-36); Mean Corpuscular Hemoglobin 25.2 PG (26-34); Mean Corpuscular Volume 76.7 fL (80-100); Monocytes Absolute Auto 600 /uL (0-900); Monocytes Percent Auto 6.1 % (3-14); Neutrophils Absolute Auto 5500 /uL (1500-7000); Neutrophils Percent Auto 57.4 % (50-75); Platelet Count 255 X10^3/uL (150-400); Red Blood Cell Count 4.84 X10^6/uL (4.0-5.2); Red Cell Distribution Width 14.5 % (11.6-14.8); White Blood Cell Count 9.5 X10^3/uL (4.5-11.0)
[2023-07-27 14:11] LABS: Hemoglobin A1C% w Est Avg Glu 5.2 % (4.0-6.0)
[2023-07-27 14:25] LABS: Alanine Aminotransferase 17 IU/L (<35); Albumin 4.6 g/dL (3.5-5.0); Albumin Globulin Ratio 1.4 (1.0-2.8); Alkaline Phosphatase 87 U/L (38-126); Aspartate Aminotransferase 21 IU/L (14-36); BUN Creatinine Ratio 28.6 (6-22); Bilirubin Total 0.5 mg/dL (0.2-1.3); Blood Urea Nitrogen 14 mg/dL (7-17); Calcium 9.2 mg/dL (8.4-10.2); Carbon Dioxide 24 mmol/L (22-32); Chloride 107 mmol/L (98-107); Cholesterol 190 mg/dL (140-199); Estimated Glomerular Filt Rate > 60 mL/min (>60); Globulin 3.2 g/dL (1.7-4.1); Glucose 87 mg/dL (70-100); HDL Cholesterol 51 mg/dL (40-60); HEMOLYSIS < 15 (0-50); LDL Cholesterol Calculated 105 mg/dL (<100); Potassium 3.9 mmol/L (3.4-5.1); Sodium 139 mmol/L (137-145); Total Protein 7.8 g/dL (6.3-8.2); Triglycerides 172 mg/dL (35-150)
[2023-07-27 14:55] LABS: TSH w/ Reflex to FT4 1.09 uIU/mL (0.47-4.68)
== END ==
PROVIDERS: PCP Student in an Organized Health Care Education/Training Program; Referring Provider Student in an Organized Health Care Education/Training Program; Visit Provider Student in an Organized Health Care Education/Training Program
DX: Z13.1 Encounter for screening for diabetes mellitus (principal); Z13.29 Encounter for screening for other suspected endocrine disorder; I10 Essential (primary) hypertension; Z13.220 Encounter for screening for lipoid disorders; E66.01 Morbid (severe) obesity due to excess calories
CPT/HCPCS: 36415; 80053; 80061; 83036; 84443; 85025

== ENCOUNTER → 2023-10-14 10:57 | Outpatient (CLI) | payer OTHER, SELFPAY ==
--- NOTE | 2023-10-14 11:00 | DI.US.S_ITS ---
PROCEDURE: US OB <= 14 WEEKS FETUS INDICATIONS: DATES OUTSIDE/PRIOR DATING DATA: Last menstrual period (LMP): 09/06/2023 LMP-based estimated date of delivery (DEBORAH): 06/12/2024 First dating scan (date and location): 10/14/2023 Estimated date of delivery (DEBORAH) from first dating scan: 06/13/2024 TECHNIQUE: Real-time scanning was performed of the fetus and maternal pelvic organs, with image documentation. Endovaginal scanning was also performed to better visualize the fetus and maternal ovaries. COMPARISON: None. FINDINGS: Embryo: Intrauterine fluid collection is seen with mean diameter of 0.6 cm. No pole is seen. Maternal organs: Large simple right ovarian cyst measures up to 5.6 cm. Left ovary is not visualized. IMPRESSION: Intrauterine fluid collection is seen and most likely an early gestational sac. Mean sac diameter is 0.6 cm compatible with an estimated gestational age of 5 weeks 1 day. However, ectopic or early failure are not excluded. Recommend correlation with clinical findings as well as serial beta HCG measurements and follow-up ultrasound. Approved by: Blake Lopez M.D. on 10/14/2023 at 21:02
== END ==
LOC: US 10:57
PROVIDERS: PCP Student in an Organized Health Care Education/Training Program; Referring Provider Obstetrics & Gynecology; Visit Provider Obstetrics & Gynecology
DX: O09.299 Supervision of pregnancy with other poor reproductive or obstetric history, unspecified trimester (principal)
CPT/HCPCS: 76801; 76817

== ENCOUNTER → 2023-11-15 16:21 | Outpatient (CLI) | payer OTHER, SELFPAY ==
[2023-11-15 17:53] LABS: Add Manual Diff / Slide Review NO; Basophils Absolute Auto 0 /uL (0-100); Basophils Percent Auto 0.2 % (0-2); Eosinophils Absolute Auto 100 /uL (0-450); Eosinophils Percent Auto 0.7 % (2-4); Hematocrit 32.6 % (36-46); Hemoglobin 11.1 g/dL (12.0-16.0); Lymphocytes Absolute Auto 2600 /uL (1100-4500); Lymphocytes Percent Auto 26.1 % (25-40); Mean Corpuscular HGB Conc 34.1 % (30-36); Mean Corpuscular Hemoglobin 27.1 PG (26-34); Mean Corpuscular Volume 79.4 fL (80-100); Monocytes Absolute Auto 800 /uL (0-900); Monocytes Percent Auto 7.9 % (3-14); Neutrophils Absolute Auto 6400 /uL (1500-7000); Neutrophils Percent Auto 65.1 % (50-75); Platelet Count 239 X10^3/uL (150-400); Red Blood Cell Count 4.11 X10^6/uL (4.0-5.2); Red Cell Distribution Width 14.4 % (11.6-14.8); White Blood Cell Count 9.9 X10^3/uL (4.5-11.0)
[2023-11-15 18:00] LABS: Appearance Urine UA CLEAR; Bilirubin Urine UA NEGATIVE (NEGATIVE); Color Urine UA YELLOW; Glucose Urine UA NEGATIVE (Negative); Ketones Urine UA NEGATIVE (NEGATIVE); Leukocyte Esterase Urine UA NEGATIVE (NEGATIVE); Nitrite Urine UA NEGATIVE (Negative); Occult Blood Urine UA NEGATIVE (Negative); Protein Urine UA NEGATIVE (Negative); Specific Gravity Urine UA 1.015 (1.000-1.035); Urobilinogen Urine UA 0.2 E.U./dL (0.2)
[2023-11-15 18:06] LABS: Alanine Aminotransferase 16 IU/L (<35); Aspartate Aminotransferase 26 IU/L (14-36); Blood Urea Nitrogen 6 mg/dL (7-17); Estimated Glomerular Filt Rate > 60 mL/min (>60); Uric Acid 4.4 mg/dL (2.5-6.2)
[2023-11-15 18:22] LABS: Hemoglobin A1C% w Est Avg Glu 5.1 % (4.0-6.0)
[2023-11-15 18:51] LABS: Hepatitis B Surface Antigen NEGATIVE s/c (NEGATIVE); Rubella Antibody IgG 5.6 IU/mL (>15)
[2023-11-15 19:11] LABS: HIV 1 & 2 Ab/Ag 4th Gen Combo NEGATIVE (NEGATIVE); Hep C Virus Ab w/Reflex Quant NEGATIVE s/c (NEGATIVE)
[2023-11-17 00:39] LABS: RPR Screen Non Reactive (Non Reactive)
== END ==
PROVIDERS: Obstetrics & Gynecology; PCP Student in an Organized Health Care Education/Training Program; Referring Provider Student in an Organized Health Care Education/Training Program; Visit Provider Student in an Organized Health Care Education/Training Program
DX: O09.299 Supervision of pregnancy with other poor reproductive or obstetric history, unspecified trimester (principal); Z87.59 Personal history of other complications of pregnancy, childbirth and the puerperium; E66.01 Morbid (severe) obesity due to excess calories
CPT/HCPCS: 36415; 80055; 81003; 82565; 83036; 84450; 84460; 84520; 84550; 86787; 86803; 86850; 86900; 86901; 87086; 87389

== ENCOUNTER → 2023-11-29 16:46 | Outpatient (CLI) | payer OTHER, SELFPAY ==
[2023-11-29 17:37] LABS: Creatinine Urine Random 125.22 mg/dL; Protein (Total) Urine Random 20 mg/dL (0-12); Protein Creatinine Ratio Urine 0.15 GRAM/24H
[2023-11-29 18:28] LABS: Add Manual Diff / Slide Review NO; Basophils Absolute Auto 0 /uL (0-100); Basophils Percent Auto 0.2 % (0-2); Eosinophils Absolute Auto 100 /uL (0-450); Eosinophils Percent Auto 0.9 % (2-4); Hematocrit 33.1 % (36-46); Hemoglobin 11.1 g/dL (12.0-16.0); Lymphocytes Absolute Auto 2700 /uL (1100-4500); Lymphocytes Percent Auto 27.5 % (25-40); Mean Corpuscular HGB Conc 33.5 % (30-36); Mean Corpuscular Hemoglobin 27.1 PG (26-34); Mean Corpuscular Volume 80.9 fL (80-100); Monocytes Absolute Auto 700 /uL (0-900); Monocytes Percent Auto 6.8 % (3-14); Neutrophils Absolute Auto 6300 /uL (1500-7000); Neutrophils Percent Auto 64.6 % (50-75); Platelet Count 229 X10^3/uL (150-400); Red Blood Cell Count 4.09 X10^6/uL (4.0-5.2); Red Cell Distribution Width 14.5 % (11.6-14.8); White Blood Cell Count 9.8 X10^3/uL (4.5-11.0)
[2023-11-29 18:30] LABS: Alanine Aminotransferase 16 IU/L (<35); Albumin 4.5 g/dL (3.5-5.0); Albumin Globulin Ratio 1.7 (1.0-2.8); Alkaline Phosphatase 72 U/L (38-126); Aspartate Aminotransferase 22 IU/L (14-36); BUN Creatinine Ratio 23.8 (6-22); Bilirubin Total 0.3 mg/dL (0.2-1.3); Blood Urea Nitrogen 10 mg/dL (7-17); Calcium 9.4 mg/dL (8.4-10.2); Carbon Dioxide 22 mmol/L (22-32); Chloride 104 mmol/L (98-107); Estimated Glomerular Filt Rate > 60 mL/min (>60); Globulin 2.7 g/dL (1.7-4.1); Glucose 94 mg/dL (70-100); HEMOLYSIS < 15 (0-50); Potassium 4.1 mmol/L (3.4-5.1); Sodium 135 mmol/L (137-145); Total Protein 7.2 g/dL (6.3-8.2)
== END ==
PROVIDERS: PCP Student in an Organized Health Care Education/Training Program; Referring Provider Student in an Organized Health Care Education/Training Program; Visit Provider Student in an Organized Health Care Education/Training Program
DX: O10.919 Unspecified pre-existing hypertension complicating pregnancy, unspecified trimester (principal); Z87.59 Personal history of other complications of pregnancy, childbirth and the puerperium
CPT/HCPCS: 36415; 80053; 82570; 84156; 85025

== ENCOUNTER → 2024-01-24 10:03 | Outpatient (CLI) | payer OTHER, SELFPAY ==
--- NOTE | 2024-01-24 10:04 | DI.US.S_ITS ---
PROCEDURE: US OB >= 14 WEEKS FETUS INDICATIONS: 20 week Anatomy Scan OUTSIDE/PRIOR DATING DATA: Last menstrual period (LMP): 09/06/2023. LMP-based estimated date of delivery (DEBORAH): 06/12/2024. First dating scan (date and location): 10/14/2023. Estimated date of delivery (DEBORAH) from first dating scan: 06/13/2024. The calculations are made using the clinical DEBORAH of 06/12/2024. TECHNIQUE: Real-time scanning was performed of the fetus, with image documentation and biometric measurements. Endovaginal scanning: Not performed COMPARISON: None. FINDINGS: General: A single living intrauterine gestation is present. Presentation: Vertex. Placenta: Placental position is posterior , without previa. Amniotic fluid index: 15.9 cm, normal range is 5-24 cm. Single deepest vertical pocket is 4.5 cm. heart rate: 150 beats per minute. Maternal cervical canal: 5.3 cm long. Normal lower limit is 2.5 cm. biometrics: Biparietal diameter: 4.7 centimeters, 20 weeks 1 day Head circumference: 17.5 centimeters, 20 weeks 0 days Abdominal circumference: 16.9 centimeters, 21 weeks 6 days Femur length: 3.2 centimeters, 19 weeks 6 days Clinically estimated gestational age: 20 weeks 0 days Composite gestational age from present scan: 20 weeks 3 days Estimated weight and percentile: 381 grams, 88th percentile Anatomic survey: Neuro: Ventricles are non-dilated at less than 10 mm. Cisterna magna is normal at 3-11 mm. Cerebellum is normal in size and morphology. Nuchal skin fold: Normal at less than 6 mm between 14-21 weeks gestational age. Face: Nose and lips, facial profile are normal. Spine: No evidence for spina bifida. Heart poorly visualized due to lie. Questionable left ventricle echogenic focus. Diaphragm: Diaphragm is intact. Stomach: Left-sided stomach is present. Kidneys: No hydronephrosis. Normal is less than 5 mm in 2nd trimester, less than 7 mm in 3rd trimester. Cord: 3-vessel cord has orthotopic insertion. Bladder: Normal in size. Extremities: All 4 extremities identified. IMPRESSION: Single living intrauterine at 20 weeks 0 days, DEBORAH of 06/12/2024. Estimated weight of 381 grams, 88th percentile. Heart poorly visualized due to lie. Questionable left ventricular echogenic focus. Consider short-term follow-up for confirmation and complete visualization of the heart structures. We strive to produce accurate, complete, and clear reports of imaging services. To assist us in improving patient care, this report was composed using standard report templates and voice recognition software. Therefore, it may contain abnormal punctuation, insertions and/or omissions. Occasional wrong-word or sound-alike substitutions may occur. Though we review the report and make efforts to correct it, we do recommend that the report be read carefully in proper context to recognize any text inaccuracies. Dictated by: Mitchel Jonas M.D. on 01/24/2024 at 12:46 Approved by: Mitchel Jonas M.D. on 01/24/2024 at 12:55
== END ==
LOC: US 10:03
PROVIDERS: PCP Student in an Organized Health Care Education/Training Program; Referring Provider Student in an Organized Health Care Education/Training Program; Visit Provider Student in an Organized Health Care Education/Training Program
DX: Z36.89 Encounter for other specified antenatal screening (principal); Z3A.20 20 weeks gestation of pregnancy
CPT/HCPCS: 76811

== ENCOUNTER 2024-02-21 10:56 | Observation (INO) | payer OTHER, MEDICAID, SELFPAY ==
--- NOTE | 2024-02-21 11:01 | DI.ECHO.S_ITS ---
[facility] : : [address] : : [facility] : : [place], : : [place] [address] : : Phone: [phone] Echocardiogram Report + + :Name: GLORY WILLIS Study Date: 02/21/2024 Height: 64 in : :[facility] ReadingLocation: Weight: 258 lb: : Gender: Female BSA: 2.2 m2 : :: 1995 Age: 28 yrs : :Reason For Study: HEART MURMUR : :Ordering Physician: MERCY, : :KATARZYNA Performed By: Oscar Souza : :Referring: KATARZYNA MADRID : + + Interpretation Summary Normal both left and right ventricle size and function. The ejection fraction is estimated to be 60-65%. Mild biatrial enlargement. No valvular abnormality. Procedure: A two-dimensional transthoracic echocardiogram with color flow and Doppler was performed. The study quality was technically good. There is no prior echocardiogram noted for this patient. The patient was in normal sinus rhythm during the exam. Left Ventricle: The left ventricle is normal in size and wall thickness. There is no ventricular septal defect visualized. The ejection fraction is estimated to be 60-65%. There are no focal wall motion abnormalities. Diastolic parameters suggest probable normal left ventricular diastolic function and normal filling pressures. Right Ventricle: The right ventricle is normal in size and function. The right ventricular systolic function is normal. Atria: There is mild biatrial enlargement. The interatrial septum grossly appears intact with no obvious evidence for an atrial septal defect. Mitral Valve: The mitral valve is normal in structure and function. There is no mitral regurgitation noted. Aortic Valve: The aortic valve is trileaflet. The aortic valve opens well. No aortic regurgitation is present. Tricuspid Valve: The tricuspid valve is normal in structure and function. There is trace tricuspid regurgitation. The right ventricular systolic pressure is estimated to be at least 27 mmHg based on an estimated right atrial pressure of 3 mm Hg. Pulmonic Valve: The pulmonic valve is normal in structure and function. There is no pulmonic valvular regurgitation. Great Vessels: The aortic root is normal size. The dimensions of the ascending aorta are normal. The pulmonary artery is normal size. The IVC is of normal diameter and collapses greater than 50% with a sniff. This suggests a low right atrial pressure of 3 mm Hg. Pericardium/ Pleura There is no pericardial effusion. There is no pleural effusion. MMode/2D Measurements & Calculations LVIDd: 5.3 cm AoV Openin.9 cm LVIDs: 3.1 cm LVOT diam: 2.0 cm IVSd: 0.81 cm Ao root diam: 2.6 cm LVPWd: 1.0 cm asc Aorta Diam: 2.7 cm LV walls. diameter/BSA (cm/m^2): 2.4 LV sys. diameter/BSA (cm/m^2): 1.4 FS: 41.6 % EPSS: 0.78 cm LA A2 area: 21.5 cm2 RA long axis: 5.5 cm LA A4 area: 26.5 cm2 RA area: 21.4 cm2 LA length (vol): 6.5 cm RA vol: 71.4 ml LA vol: 74.5 ml RA : 32.7 ml/m2 LA vol index: 34.2 ml/m2 RVD1 (basal): 3.5 cm IVC diam: 1.7 cm RVD2 (mid): 2.9 cm TAPSE: 3.5 cm Doppler Measurements & Calculations Ao V2 max: 170.3 cm/sec LVOT Max Stevie: 114.7 cm/sec Ao V2 mean: 118.8 cm/sec LV V1 max P.3 mmHg Ao V2 VTI: 33.0 cm LV V1 VTI: 27.0 cm Ao max P.6 mmHg Ao mean P.2 mmHg ULISES(I,D): 2.7 cm2 MV E max stevie: 90.3 cm/sec ULISES(V,D): 2.2 cm2 MV A max stevie: 62.4 cm/sec ULISES indexed to BSA (cm^2/m^2): 1.2 MV E/A: 1.4 sev ratio: 0.82 Med Peak E' Stevie: 8.5 cm/sec E/E' med: 10.6 Lat Peak E' Stevie: 11.7 cm/sec E/E' lat: 7.7 E/e' average: 9.2 MV dec time: 0.16 sec TR max stevie: 244.1 cm/sec TR max P.8 mmHg PA V2 max: 109.1 cm/sec SV(LVOT): 88.7 ml PA V2 mean: 68.9 cm/sec PA mean P.2 mmHg PA pr(Accel): 8.8 mmHg Electronically signed by: Lance Potts on Reading Physician:02/21/2024 04:08 PM
[2024-02-21 11:38] LABS: Add Manual Diff / Slide Review NO; Basophils Absolute Auto 0 /uL (0-100); Basophils Percent Auto 0.2 % (0-2); Eosinophils Absolute Auto 100 /uL (0-450); Eosinophils Percent Auto 0.8 % (2-4); Hematocrit 29.9 % (36-46); Hemoglobin 10.1 g/dL (12.0-16.0); Lymphocytes Absolute Auto 2000 /uL (1100-4500); Lymphocytes Percent Auto 19.9 % (25-40); Mean Corpuscular HGB Conc 33.7 % (30-36); Mean Corpuscular Hemoglobin 27.2 PG (26-34); Mean Corpuscular Volume 80.7 fL (80-100); Monocytes Absolute Auto 700 /uL (0-900); Monocytes Percent Auto 6.6 % (3-14); Neutrophils Absolute Auto 7200 /uL (1500-7000); Neutrophils Percent Auto 72.5 % (50-75); Platelet Count 227 X10^3/uL (150-400); Red Cell Distribution Width 15.1 % (11.6-14.8); White Blood Cell Count 9.9 X10^3/uL (4.5-11.0)
[2024-02-21 12:06] LABS: Alanine Aminotransferase 14 IU/L (<35); Albumin 3.9 g/dL (3.5-5.0); Albumin Globulin Ratio 1.4 (1.0-2.8); Alkaline Phosphatase 65 U/L (38-126); Aspartate Aminotransferase 20 IU/L (14-36); BUN Creatinine Ratio 16.7 (6-22); Bilirubin Total 0.3 mg/dL (0.2-1.3); Blood Urea Nitrogen 6 mg/dL (7-17); Calcium 9.4 mg/dL (8.4-10.2); Carbon Dioxide 19 mmol/L (22-32); Chloride 106 mmol/L (98-107); Estimated Glomerular Filt Rate > 60 mL/min (>60); Globulin 2.7 g/dL (1.7-4.1); Glucose 118 mg/dL (70-100); HEMOLYSIS < 15 (0-50); Potassium 3.9 mmol/L (3.4-5.1); Sodium 133 mmol/L (137-145); Total Protein 6.6 g/dL (6.3-8.2)
[2024-02-21 12:07] LABS: Uric Acid 4.2 mg/dL (2.5-6.2)
[2024-02-21 12:23] LABS: Creatinine Urine Random 109.61 mg/dL; Protein (Total) Urine Random < 5 mg/dL (0-12); Protein Creatinine Ratio Urine 0.04 GRAM/24H
[2024-02-21] MEDS: ACETAMINOPHEN 325 MG TABLET 650 MG PO (12:34)
--- NOTE | 2024-02-21 14:39 | PM.OBTRLD ---
Visit Information Visit Information Date of evaluation: 02/21/24 Primary OB Provider: Lucretia Jacques Reason for Evaluation: Yes other Comments/Additional reasons for admission: Patient sent from clinic for elevated blood pressure and new SOB. Hx of pre-eclampsia, delivery, and severe PPH requiring uterine artery embolization. Chronic hypertension this currently on labetalol 300 mg TID. Complaining of SOB, headaches, and generally feeling unwell for the past few days. Vital Signs Vital Signs: BP: 142/70 [facility] Medical History (Updated 11/29/23 @ 16:18 by Lucretia Jacques MD) PTSD (post-traumatic stress disorder) anxiety depression Oral contraceptive use Pelvic pain in female Malpositioned intrauterine device (IUD) Hemorrhage, delayed Pre-eclampsia, severe, antepartum Size of fetus inconsistent with dates in third trimester Obesity affecting in third trimester Gestational hypertension affecting first Obesity Surgical History History of tonsillectomy H/O oral surgery Family History (Updated 10/07/23 @ 13:21 by Amira Palma RN) Family/Other Breast cancer Father Hypertension Mother Contact dermatitis Grandmother Obesity Hypertension Social History marital status: number of children: 1 household members: spouse lives independently: Yes caregiver/support person: Yes 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[employer]) current occupational exposures/hazards: No special ish needs: No travel history: recent seatbelt use: always water heater temp set < 120 deg: Yes working smoke detector in home: Yes fire extinguisher in home: Yes carbon monox detector in home: Yes firearms in home: No do you feel safe at home: Yes Smoking Status: Never smoker second hand exposure: No alcohol intake: former (~1-2 seltzers/month when not ) substance use type: does not use during the past year weight has: decreased > 10 lbs (intentional w/ diet and exercise) well-balanced diet: about half the time daily servings fruits/ve-4 caffeine: Yes (ice tea and diet cola occasionally) Type(s) of exercise: walking Exam Const General: healthy appearing and anxious [facility] Head: normocephalic and atraumatic Eyes General: appearance normal, both eyes and all related structures Neck Neck: normal visual inspection Resp Effort & Inspection: normal respiratory effort and able to speak in complete sentences Auscultation: clear to auscultation bilaterally Cardio Rate: regular rate Rhythm: regular rhythm Heart Sounds: S1 normal, S2 normal and murmur systolic GI Other: GRAVID Neuro General: patient alert and patient oriented x3 Speech: speech normal Objective Labs 02/21/24 11:15 02/21/24 11:15 Labs: Laboratory Results - last 24 hr 02/21/24 11:15 WBC 9.9 RBC 3.70 L Hgb 10.1 L Hct 29.9 L MCV 80.7 MCH 27.2 MCHC 33.7 RDW 15.1 H Plt Count 227 Neut % (Auto) 72.5 Lymph % (Auto) 19.9 L [place] % (Auto) 6.6 Eos % (Auto) 0.8 L Baso % (Auto) 0.2 Neut # (Auto) 7200 H Lymph # (Auto) 2000 [place] # (Auto) 700 Eos # (Auto) 100 Baso # (Auto) 0 Sodium 133 L Potassium 3.9 Chloride 106 Carbon Dioxide 19 L BUN 6 L Creatinine 0.36 L Estimated GFR > 60 BUN/Creatinine Ratio 16.7 Glucose 118 H Uric Acid 4.2 Calcium 9.4 Total Bilirubin 0.3 AST 20 ALT 14 Alkaline Phosphatase 65 Total Protein 6.6 Albumin 3.9 Globulin 2.7 Albumin/Globulin Ratio 1.4 U Random Total Protein < 5 Urine Creatinine 109.61 Protein/Creatinin Ratio 0.04 Evaluation Evaluation Baseline heart rate: 144 Diagnosis, Plan/Disposition Plan/Disposition Plan: 28 yo w/hx of pre-eclampsia at 24w1d presented in clinic with elevated blood pressure, SOB, headache and new systolic murmur. Chronic hypertension currently controlled on labetalol 300 mg TID> -CMP, CBC, and P/C ratio normal without signs of pre-eclampsia. -Echocardiogram obtained for new systolic murmur. Bilateral atrial enlargement present. Discussed with MFM, recommend local cardiology referral. Likely related to changes. -Will follow up in 1 week with PCP. OB Disposition: home
== END 2024-02-21 14:32 | disposition home or self-care (01) ==
PROVIDERS: Admitting Provider Student in an Organized Health Care Education/Training Program; PCP Student in an Organized Health Care Education/Training Program; Referring Provider Student in an Organized Health Care Education/Training Program; Visit Provider Student in an Organized Health Care Education/Training Program
DX: O10.912 Unspecified pre-existing hypertension complicating pregnancy, second trimester (principal); O26.892 Other specified pregnancy related conditions, second trimester; R06.02 Shortness of breath; R51.9 Headache, unspecified; Z3A.24 24 weeks gestation of pregnancy; Z86.79 Personal history of other diseases of the circulatory system
CPT/HCPCS: 59025; 59050; 80053; 82570; 84156; 84550; 85025; 93306; G0378; G0379

== ENCOUNTER → 2024-03-06 10:30 | Outpatient (CLI) | payer OTHER, MEDICAID, SELFPAY ==
--- NOTE | 2024-03-06 12:11 | DI.US.S_ITS ---
PROCEDURE: US OB FOLLOW UP INDICATIONS: follow up, cardiac poorly visualized OUTSIDE/PRIOR DATING DATA: Last menstrual period (LMP): 09/06/2023. LMP-based estimated date of delivery (DEBORAH): 06/12/2024. First dating scan (date and location): 10/14/2023. Estimated date of delivery (DEBORAH) from first dating scan: 06/13/2024. The calculations are made using the clinical DEBORAH of 06/12/2024. TECHNIQUE: Real-time scanning was performed of the fetus, with image documentation and biometric measurements. COMPARISON: [facility], OB FOLLOW UP, 01/23/2022, 15:36. [facility], OB >= 14 WEEKS FETUS, 01/24/2024, 10:31. FINDINGS: General: A single living intrauterine gestation is present. Presentation: Vertex. Placenta: Placental position is posterior , without previa. Amniotic fluid index: 19.1 cm, normal range is 5-24 cm. Single deepest vertical pocket is 6.8 cm. heart rate: 140 beats per minute. Maternal cervical canal: 3.7 cm long. Normal lower limit is 2.5 cm. biometrics: Clinically estimated gestational age: 26 weeks 0 days Other: Ventricular echogenic focus is unchanged. IMPRESSION: Single live intrauterine with gestational age of 26 weeks 0 days. Left ventricular echogenic focus is unchanged. We strive to produce accurate, complete, and clear reports of imaging services. To assist us in improving patient care, this report was composed using standard report templates and voice recognition software. Therefore, it may contain abnormal punctuation, insertions and/or omissions. Occasional wrong-word or sound-alike substitutions may occur. Though we review the report and make efforts to correct it, we do recommend that the report be read carefully in proper context to recognize any text inaccuracies. Dictated by: Lydia Reinoso M.D. on 03/06/2024 at 14:54 Approved by: Lydia Reinoso M.D. on 03/06/2024 at 14:56
[2024-03-06 13:03] LABS: Hemoglobin 10.1 g/dL (12.0-16.0)
[2024-03-06 13:24] LABS: GTT (PREG) 1 Hour PP 50gm Dose 116 mg/dL (76-139)
== END ==
PROVIDERS: PCP Student in an Organized Health Care Education/Training Program; Referring Provider Student in an Organized Health Care Education/Training Program; Visit Provider Student in an Organized Health Care Education/Training Program
DX: Z3A.26 26 weeks gestation of pregnancy; O09.292 Supervision of pregnancy with other poor reproductive or obstetric history, second trimester
CPT/HCPCS: 36415; 76816; 82950; 85014; 85018

== ENCOUNTER 2024-03-09 07:07 | Emergency (ER) | payer OTHER, MEDICAID, SELFPAY ==
[2024-03-09 07:19] VITALS: BP 130/59; PULSE 88; RESP 18; TEMP 37; O2SAT 99
--- NOTE | 2024-03-09 07:19 | ED_ITS ---
HPI - General Adult General Chief complaint: Dizziness Stated complaint: dizzy Time Seen by Provider: 03/09/24 07:10 History of Present Illness HPI narrative: 28-year-old at 34 weeks history of preeclampsia in complicated awoke in the middle of the night with vertiginous complaints no nausea. No fevers, cough, chills, contractions, vaginal discharge. She went back to bed and when she woke up at 6:00 a.m. was similar. She comes to the ER for evaluation. She has never had similar symptoms denies any recent upper respiratory infections. She is feeling the baby moving in active. No dysuria, no headaches Related Data Home Medications Medication Instructions Recorded Confirmed vitamin-ferrous sulfate tab PO 10/07/23 02/29/24 27 mg iron-folic acid 0.8 mg tablet Previous Rx's Medication Instructions Recorded aspirin 81 mg tablet,delayed 81 mg PO DAILY #90 tabs 12/08/23 release labetalol 300 mg tablet 300 mg PO TID #90 tabs 12/27/23 Allergies Allergy/AdvReac Type Severity Reaction Status Date / Time No Known Allergies Allergy Verified 03/09/24 07:23 Review of Systems Review of Systems Narrative: Pertinent positive and negative findings as per HPI Patient History Medical History PTSD (post-traumatic stress disorder) anxiety depression Oral contraceptive use Pelvic pain in female Malpositioned intrauterine device (IUD) Hemorrhage, delayed Pre-eclampsia, severe, antepartum Size of fetus inconsistent with dates in third trimester Obesity affecting in third trimester Gestational hypertension affecting first Obesity Surgical History History of tonsillectomy H/O oral surgery Family History Family/Other Breast cancer Father Hypertension Mother Contact dermatitis Grandmother Obesity Hypertension Social History marital status: number of children: 1 household members: spouse lives independently: Yes caregiver/support person: Yes [facility] pets and animals: Yes (2 dogs) education level: high school 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[employer]) current occupational exposures/hazards: No special ish needs: No travel history: recent seatbelt use: always water heater temp set < 120 deg: Yes working smoke detector in home: Yes fire extinguisher in home: Yes carbon monox detector in home: Yes firearms in home: No do you feel safe at home: Yes Smoking Status: Never smoker second hand exposure: No alcohol intake: former (~1-2 seltzers/month when not ) substance use type: does not use during the past year weight has: decreased > 10 lbs (intentional w/ diet and exercise) well-balanced diet: about half the time daily servings fruits/ve-4 caffeine: Yes (ice tea and diet cola occasionally) Type(s) of exercise: walking Smoking Status: Never smoker alcohol intake frequency: holidays/special occasions only Substance Use Type: does not use Exam Initial Vital Signs Initial Vital Signs: Vital Signs Temperature 98.6 F 03/09/24 07:19 Pulse Rate 88 03/09/24 07:19 Respiratory Rate 18 03/09/24 07:19 Blood Pressure 130/59 L 03/09/24 07:19 Pulse Oximetry 99 03/09/24 07:19 Oxygen Delivery Method Room Air 03/09/24 07:19 General: Healthy appearing, in no acute distress. Able to give a complete and coherent history. Well-nourished well-developed HEENT: Moist mucous membranes, normal sclera with reactive pupils, when sitting upright no nystagmus Respiratory: Full and symmetrical air movement Cardiac: Regular rate and rhythm no murmurs no bruits Abdomen: Soft, gravid, nontender Neurologic: Grossly neurologically intact with no obvious asymmetries or abnormalities. Provocative maneuvers for BPV are performed. She has mild nystagmus with all positions significantly worse when going to the right. Psych: Cooperative, appropriate insight and affect Course Vital Signs Vital signs: Vital Signs - 8 hr 03/09/24 07:19 03/09/24 07:20 Temperature 98.6 F Pulse Rate 88 83 Respiratory Rate 18 14 Blood Pressure 130/59 L 130/59 L Pulse Oximetry 99 99 Oxygen Delivery Method Room Air Room Air Medical Decision Making MDM Narrative Medical decision making narrative: 28-year-old woman with high-risk history of preeclampsia presents with acute onset vertigo in the middle of the night. She is meeting criteria for B PV. In the emergency department we did do demonstration of the Nineveh-Hallpike maneuver, to the right as this seems to be the worst side. She noted some relief after the initial maneuver. She is instructed on doing this maneuver at home as well as suggestion given that she look up benign positional vertigo and Casey-Hallpike test on YouTube. There are some excellent resources including videos on how to do this maneuver at home. From an emergency department standpoint she is safe for discharge. We have discussed her visit with labor and delivery and she will be discharged to labor and delivery for further evaluation regarding causes of vertigo. Questions are answered she is safe for discharge Discharge Plan Departure Patient Disposition: Home Clinical Impression: BPV (benign positional vertigo) Qualifiers: Laterality: right Qualified Code(s): H81.11 - Benign paroxysmal vertigo, right ear Instructions: Benign Paroxysmal Positional Vertigo Activity Restrictions/Additional Instructions: Thank you for coming into You have benign positional vertigo. Please read the instructions above. I have given you some information on how to do the Casey-Hallpike maneuver at home. That is the maneuver that we did in the ER where you are twisting around your inner ear. This helps re-set the crystals in your ear. I am not concerned with your blood pressure in the ER, however, with history of preeclampsia we will want you to be checked out in labor and delivery after your done in the emergency department. Briefly if you find that you are getting worse or have new symptoms please feel free to return to the Prescriptions: No Action aspirin 81 mg tablet,delayed release (DR/EC) 81 mg PO DAILY Qty: 90 3RF labetalol 300 mg tablet 300 mg PO TID Qty: 90 3RF vit-ferrous sulfat-FA 27 mg iron- 0.8 mg tablet PO Referrals: Lucretia Jacques MD [Primary Care Provider] - Stand Alone Forms: Patient Portal/API, Work Release Note
[2024-03-09 07:20] VITALS: BP 130/59; PULSE 83; RESP 14; O2SAT 99
[2024-03-09 07:45] VITALS: BP 118/58
== END 2024-03-09 07:45 | disposition home or self-care (01) ==
PROVIDERS: Emergency Provider Emergency Medicine; PCP Student in an Organized Health Care Education/Training Program
DX: O26.893 Other specified pregnancy related conditions, third trimester (principal); H81.11 Benign paroxysmal vertigo, right ear; Z3A.34 34 weeks gestation of pregnancy

== ENCOUNTER 2024-03-09 07:49 | Outpatient (CLI) | payer OTHER, MEDICAID, SELFPAY | END 2024-03-09 08:51 | disposition home or self-care (01) | LOC: OB 03-13 10:38 | PROVIDERS: PCP Student in an Organized Health Care Education/Training Program; Referring Provider Student in an Organized Health Care Education/Training Program; Visit Provider Student in an Organized Health Care Education/Training Program | DX: O26.892 Other specified pregnancy related conditions, second trimester (principal); R42 Dizziness and giddiness; O10.912 Unspecified pre-existing hypertension complicating pregnancy, second trimester; Z3A.26 26 weeks gestation of pregnancy | CPT/HCPCS: 59025; 99281; G0378; G0379 ==

== ENCOUNTER → 2024-03-30 12:38 | Outpatient (CLI) | payer OTHER, MEDICAID, SELFPAY ==
[2024-03-30 14:05] LABS: Add Manual Diff / Slide Review NO; Basophils Absolute Auto 0 /uL (0-100); Basophils Percent Auto 0.2 % (0-2); Eosinophils Absolute Auto 100 /uL (0-450); Eosinophils Percent Auto 0.6 % (2-4); Hematocrit 31.4 % (36-46); Hemoglobin 10.4 g/dL (12.0-16.0); Lymphocytes Absolute Auto 2000 /uL (1100-4500); Lymphocytes Percent Auto 16.5 % (25-40); Mean Corpuscular HGB Conc 33.2 % (30-36); Mean Corpuscular Hemoglobin 26.7 PG (26-34); Mean Corpuscular Volume 80.4 fL (80-100); Monocytes Absolute Auto 1000 /uL (0-900); Monocytes Percent Auto 8.1 % (3-14); Neutrophils Absolute Auto 9000 /uL (1500-7000); Neutrophils Percent Auto 74.6 % (50-75); Platelet Count 249 X10^3/uL (150-400); Red Blood Cell Count 3.91 X10^6/uL (4.0-5.2); Red Cell Distribution Width 15.7 % (11.6-14.8)
[2024-03-30 14:26] LABS: Alanine Aminotransferase 17 IU/L (<35); Albumin 3.8 g/dL (3.5-5.0); Albumin Globulin Ratio 1.5 (1.0-2.8); Alkaline Phosphatase 89 U/L (38-126); Aspartate Aminotransferase 19 IU/L (14-36); BUN Creatinine Ratio 17.5 (6-22); Bilirubin Total 0.3 mg/dL (0.2-1.3); Blood Urea Nitrogen 7 mg/dL (7-17); Calcium 9.7 mg/dL (8.4-10.2); Carbon Dioxide 20 mmol/L (22-32); Chloride 106 mmol/L (98-107); Estimated Glomerular Filt Rate > 60 mL/min (>60); Globulin 2.6 g/dL (1.7-4.1); Glucose 106 mg/dL (70-100); HEMOLYSIS < 15 (0-50); Potassium 4.2 mmol/L (3.4-5.1); Sodium 134 mmol/L (137-145); Total Protein 6.4 g/dL (6.3-8.2)
[2024-03-30 16:51] LABS: Creatinine Urine Random 81.32 mg/dL; Protein (Total) Urine Random 12 mg/dL (0-12); Protein Creatinine Ratio Urine 0.14 GRAM/24H
== END ==
LOC: LAB 12:39
PROVIDERS: PCP Student in an Organized Health Care Education/Training Program; Referring Provider Student in an Organized Health Care Education/Training Program; Visit Provider Student in an Organized Health Care Education/Training Program
DX: O10.913 Unspecified pre-existing hypertension complicating pregnancy, third trimester (principal); R19.5 Other fecal abnormalities; Z3A.28 28 weeks gestation of pregnancy
CPT/HCPCS: 36415; 80053; 82570; 84156; 85025

== ENCOUNTER 2024-04-08 19:56 | Observation (INO) | payer OTHER, MEDICAID, SELFPAY ==
[2024-04-08 20:55] LABS: Add Manual Diff / Slide Review NO; Basophils Absolute Auto 0 /uL (0-100); Basophils Percent Auto 0.4 % (0-2); Eosinophils Absolute Auto 100 /uL (0-450); Eosinophils Percent Auto 1.1 % (2-4); Hematocrit 30.9 % (36-46); Hemoglobin 10.3 g/dL (12.0-16.0); Lymphocytes Absolute Auto 3300 /uL (1100-4500); Lymphocytes Percent Auto 27.7 % (25-40); Mean Corpuscular HGB Conc 33.4 % (30-36); Monocytes Absolute Auto 1000 /uL (0-900); Monocytes Percent Auto 8.2 % (3-14); Neutrophils Absolute Auto 7500 /uL (1500-7000); Neutrophils Percent Auto 62.6 % (50-75); Platelet Count 251 X10^3/uL (150-400); Red Blood Cell Count 3.81 X10^6/uL (4.0-5.2); Red Cell Distribution Width 15.9 % (11.6-14.8); White Blood Cell Count 11.9 X10^3/uL (4.5-11.0)
[2024-04-08] MEDS: BUTALB/APAP/CAFFEINE 50/325/40 TABLET 2 EACH PO (20:56)
[2024-04-08 21:18] LABS: Alanine Aminotransferase 19 IU/L (<35); Albumin 3.6 g/dL (3.5-5.0); Albumin Globulin Ratio 1.2 (1.0-2.8); Alkaline Phosphatase 89 U/L (38-126); Aspartate Aminotransferase 21 IU/L (14-36); BUN Creatinine Ratio 17.4 (6-22); Bilirubin Total 0.3 mg/dL (0.2-1.3); Blood Urea Nitrogen 8 mg/dL (7-17); Calcium 9.4 mg/dL (8.4-10.2); Carbon Dioxide 21 mmol/L (22-32); Chloride 108 mmol/L (98-107); Estimated Glomerular Filt Rate > 60 mL/min (>60); Glucose 114 mg/dL (70-100); HEMOLYSIS < 15 (0-50); Potassium 3.5 mmol/L (3.4-5.1); Sodium 132 mmol/L (137-145); Total Protein 6.6 g/dL (6.3-8.2); Uric Acid 4.3 mg/dL (2.5-6.2)
[2024-04-08 21:27] LABS: Creatinine Urine Random 49.92 mg/dL; Protein (Total) Urine Random 11 mg/dL (0-12); Protein Creatinine Ratio Urine 0.22 GRAM/24H
== END 2024-04-08 22:03 | disposition home or self-care (01) ==
PROVIDERS: Admitting Provider Obstetrics & Gynecology; PCP Student in an Organized Health Care Education/Training Program; Referring Provider Obstetrics & Gynecology; Visit Provider Obstetrics & Gynecology
DX: O10.913 Unspecified pre-existing hypertension complicating pregnancy, third trimester (principal); Z3A.30 30 weeks gestation of pregnancy
CPT/HCPCS: 59025; 59050; 80053; 82570; 84156; 84550; 85025; G0378; G0379

== ENCOUNTER → 2024-04-17 11:16 | Outpatient (CLI) | payer OTHER, MEDICAID, SELFPAY ==
--- NOTE | 2024-04-17 11:18 | DI.US.S_ITS ---
PROCEDURE: US OB LIMITED INDICATIONS: Growth Scan due to hypertension in mother OUTSIDE/PRIOR DATING DATA: Last menstrual period (LMP): 09/06/2023. LMP-based estimated date of delivery (DEBORAH): 06/12/2024. First dating scan (date and location): 10/14/2023. Estimated date of delivery (DEBORAH) from first dating scan: 06/13/2024. The calculations are made using the clinical DEBORAH of 06/12/2024. TECHNIQUE: Real-time scanning was performed of the fetus, with image documentation. Endovaginal scanning: Not performed COMPARISON: [facility], OB FOLLOW UP, 03/06/2024, 12:54. FINDINGS: General: A single living intrauterine gestation is present. Presentation: Vertex. Placenta: Placental position is posterior, without previa. Amniotic fluid index: 12.0 cm, normal range is 5-24 cm. Single deepest vertical pocket is 5.1 cm. heart rate: 137 beats per minute. Maternal cervical canal: 3.1 cm long. Normal lower limit is 2.5 cm. Closed. biometrics: Biparietal diameter: 8.0 cm, 32 weeks 0 days Head circumference: 30.2 cm, 33 weeks 3 Abdominal circumference: 29.8 cm, 33 weeks 5 days Femur length: 6.2 cm, 32 weeks 2 days Clinically estimated gestational age: 32 weeks 0 days Composite gestational age from present scan: 32 weeks 6 days Estimated weight and percentile: 2125 g, 76 percentile IMPRESSION: 1. Ruiz living intrauterine at 32 weeks 6 days based on today's scan. Vertex position. Fetus is in the 76 percentile for weight. 2. Normal placenta and amniotic fluid. We strive to produce accurate, complete, and clear reports of imaging services. To assist us in improving patient care, this report was composed using standard report templates and voice recognition software. Therefore, it may contain abnormal punctuation, insertions and/or omissions. Occasional wrong-word or sound-alike substitutions may occur. Though we review the report and make efforts to correct it, we do recommend that the report be read carefully in proper context to recognize any text inaccuracies. Dictated by: Freedom Vizcarra M.D. on 04/17/2024 at 15:12 Approved by: Freedom Vizcarra M.D. on 04/17/2024 at 15:17
[2024-04-17 11:32] LABS: Add Manual Diff / Slide Review NO; Basophils Absolute Auto 0 /uL (0-100); Basophils Percent Auto 0.4 % (0-2); Eosinophils Absolute Auto 100 /uL (0-450); Eosinophils Percent Auto 0.7 % (2-4); Hematocrit 32.9 % (36-46); Hemoglobin 11.1 g/dL (12.0-16.0); Lymphocytes Absolute Auto 2100 /uL (1100-4500); Mean Corpuscular HGB Conc 33.6 % (30-36); Mean Corpuscular Hemoglobin 27.2 PG (26-34); Mean Corpuscular Volume 80.9 fL (80-100); Monocytes Absolute Auto 800 /uL (0-900); Monocytes Percent Auto 7.8 % (3-14); Neutrophils Absolute Auto 7600 /uL (1500-7000); Neutrophils Percent Auto 71.1 % (50-75); Platelet Count 251 X10^3/uL (150-400); Red Blood Cell Count 4.07 X10^6/uL (4.0-5.2); Red Cell Distribution Width 15.9 % (11.6-14.8); White Blood Cell Count 10.6 X10^3/uL (4.5-11.0)
[2024-04-17 11:52] LABS: Alanine Aminotransferase 18 IU/L (<35); Albumin Globulin Ratio 1.5 (1.0-2.8); Alkaline Phosphatase 89 U/L (38-126); Aspartate Aminotransferase 21 IU/L (14-36); Bilirubin Total 0.3 mg/dL (0.2-1.3); Blood Urea Nitrogen 6 mg/dL (7-17); Calcium 9.7 mg/dL (8.4-10.2); Carbon Dioxide 21 mmol/L (22-32); Chloride 108 mmol/L (98-107); Estimated Glomerular Filt Rate > 60 mL/min (>60); Globulin 2.7 g/dL (1.7-4.1); Glucose 112 mg/dL (70-100); HEMOLYSIS < 15 (0-50); Potassium 4.2 mmol/L (3.4-5.1); Sodium 135 mmol/L (137-145); Total Protein 6.7 g/dL (6.3-8.2)
[2024-04-17 12:37] LABS: Creatinine Urine Random 44.91 mg/dL; Protein (Total) Urine Random 12 mg/dL (0-12); Protein Creatinine Ratio Urine 0.26 GRAM/24H
== END ==
PROVIDERS: PCP Student in an Organized Health Care Education/Training Program; Referring Provider Family Medicine; Visit Provider Family Medicine
DX: O16.3 Unspecified maternal hypertension, third trimester (principal); O09.293 Supervision of pregnancy with other poor reproductive or obstetric history, third trimester; Z3A.32 32 weeks gestation of pregnancy
CPT/HCPCS: 36415; 76815; 80053; 82570; 84156; 85025

== ENCOUNTER 2024-04-20 10:21 | Outpatient (CLI) | payer OTHER, MEDICAID, SELFPAY ==
--- NOTE | 2024-04-20 11:01 | PM.OBTRLD ---
Visit Information Visit Information Date of evaluation: 04/20/24 Primary OB Provider: Lucretia Jacques On-call OB Provider: Milton Joseph Reason for Evaluation: Yes other Comments/Additional reasons for admission: Leeroy is a 28 yo at 32+3 wks EGA who presents to the center after having some elevated pressures at home earlier today. She denies headache, blurred vision, or right upper quadrant pain. Her baby is active. She denies also contractions, bleeding, leakage of fluid per vagina, or change in discharge. She is currently on both labetalol 300 mg p.o. t.i.d. as well as nifedipine 30 mg extended release daily. GHTN/PEC labs as recently as 04/17/2024 are all normal/negative. Vital Signs Vital Signs: BP's on Center: 130/60, 128/58, 123/59 [facility] Medical History PTSD (post-traumatic stress disorder) anxiety depression Oral contraceptive use Pelvic pain in female Malpositioned intrauterine device (IUD) Hemorrhage, delayed Pre-eclampsia, severe, antepartum Size of fetus inconsistent with dates in third trimester Obesity affecting in third trimester Gestational hypertension affecting first Obesity Surgical History History of tonsillectomy H/O oral surgery Family History Family/Other Breast cancer Father Hypertension Mother Contact dermatitis Grandmother Obesity Hypertension Social History marital status: number of children: 1 household members: spouse lives independently: Yes caregiver/support person: Yes housing: [facility]ium ([facility]) pets and animals: Yes (2 dogs) education level: high school 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[employer]) current occupational exposures/hazards: No special ish needs: No travel history: recent seatbelt use: always water heater temp set < 120 deg: Yes working smoke detector in home: Yes fire extinguisher in home: Yes carbon monox detector in home: Yes firearms in home: No do you feel safe at home: Yes Smoking Status: Never smoker second hand exposure: No alcohol intake: former (~1-2 seltzers/month when not ) substance use type: does not use during the past year weight has: decreased > 10 lbs (intentional w/ diet and exercise) well-balanced diet: about half the time daily servings fruits/ve-4 caffeine: Yes (ice tea and diet cola occasionally) Type(s) of exercise: walking Review of Systems Review of Systems Narrative: Problem-specific ROS positives included in HPI Exam Vital Signs (past 8 hours): See above Evaluation Evaluation Baseline heart rate: 14 Variability: Moderate (11-25) monitor accelerations: Absent Monitor Decelerations: Absent Category of Tracing: Reactive Status: Category l Diagnosis, Plan/Disposition Final Diagnosis (1) Chronic hypertension affecting : Status: Acute Plan/Disposition Plan: Discharged to home with instructions to continue monitoring blood pressure and report any significant elevations. A copy of this note will be sent to her primary obstetrical provider. OB Disposition: home
== END 2024-04-20 11:35 | disposition home or self-care (01) ==
LOC: LABOR 11:07 → OB 04-24 08:45
PROVIDERS: PCP Student in an Organized Health Care Education/Training Program; Referring Provider Obstetrics & Gynecology; Visit Provider Obstetrics & Gynecology
DX: O10.913 Unspecified pre-existing hypertension complicating pregnancy, third trimester (principal); Z3A.32 32 weeks gestation of pregnancy
CPT/HCPCS: 59025; G0378; G0379

== ENCOUNTER → 2024-04-25 09:17 | Outpatient (CLI) | payer OTHER, MEDICAID, SELFPAY ==
[2024-04-25 10:35] LABS: Alanine Aminotransferase 18 IU/L (<35); Albumin 3.6 g/dL (3.5-5.0); Albumin Globulin Ratio 1.4 (1.0-2.8); Alkaline Phosphatase 91 U/L (38-126); Aspartate Aminotransferase 24 IU/L (14-36); Bilirubin Total 0.4 mg/dL (0.2-1.3); Blood Urea Nitrogen 6 mg/dL (7-17); Calcium 9.4 mg/dL (8.4-10.2); Carbon Dioxide 18 mmol/L (22-32); Chloride 107 mmol/L (98-107); Estimated Glomerular Filt Rate > 60 mL/min (>60); Globulin 2.6 g/dL (1.7-4.1); Glucose 108 mg/dL (70-100); HEMOLYSIS 21 (0-50); Potassium 3.9 mmol/L (3.4-5.1); Sodium 135 mmol/L (137-145); Total Protein 6.2 g/dL (6.3-8.2)
[2024-04-25 10:50] LABS: Creatinine Urine Random 43.82 mg/dL; Protein (Total) Urine Random 15 mg/dL (0-12); Protein Creatinine Ratio Urine 0.34 GRAM/24H
[2024-04-25 10:55] LABS: Microalbumin Urine Random < 0.6 mg/dL (0-1.6)
[2024-04-25 11:02] LABS: Add Manual Diff / Slide Review NO; Basophils Absolute Auto 0 /uL (0-100); Basophils Percent Auto 0.2 % (0-2); Eosinophils Absolute Auto 100 /uL (0-450); Eosinophils Percent Auto 0.8 % (2-4); Hematocrit 32.3 % (36-46); Hemoglobin 10.7 g/dL (12.0-16.0); Lymphocytes Absolute Auto 2400 /uL (1100-4500); Lymphocytes Percent Auto 24.2 % (25-40); Mean Corpuscular Hemoglobin 26.9 PG (26-34); Mean Corpuscular Volume 81.3 fL (80-100); Monocytes Absolute Auto 800 /uL (0-900); Monocytes Percent Auto 7.8 % (3-14); Neutrophils Absolute Auto 6600 /uL (1500-7000); Platelet Count 224 X10^3/uL (150-400); Red Blood Cell Count 3.97 X10^6/uL (4.0-5.2); Red Cell Distribution Width 16.5 % (11.6-14.8); White Blood Cell Count 9.9 X10^3/uL (4.5-11.0)
== END ==
PROVIDERS: PCP Student in an Organized Health Care Education/Training Program; Referring Provider Student in an Organized Health Care Education/Training Program; Visit Provider Student in an Organized Health Care Education/Training Program
DX: O10.913 Unspecified pre-existing hypertension complicating pregnancy, third trimester (principal); Z3A.33 33 weeks gestation of pregnancy
CPT/HCPCS: 36415; 80053; 82043; 82570; 84156; 85025

== ENCOUNTER → 2024-05-01 08:41 | Outpatient (CLI) | payer OTHER, SELFPAY ==
[2024-05-01 09:17] LABS: Add Manual Diff / Slide Review NO; Basophils Absolute Auto 0 /uL (0-100); Basophils Percent Auto 0.3 % (0-2); Eosinophils Absolute Auto 100 /uL (0-450); Eosinophils Percent Auto 0.9 % (2-4); Hematocrit 33.2 % (36-46); Lymphocytes Absolute Auto 2000 /uL (1100-4500); Lymphocytes Percent Auto 18.4 % (25-40); Mean Corpuscular HGB Conc 33.3 % (30-36); Mean Corpuscular Volume 81.2 fL (80-100); Monocytes Absolute Auto 800 /uL (0-900); Monocytes Percent Auto 7.2 % (3-14); Neutrophils Absolute Auto 8100 /uL (1500-7000); Neutrophils Percent Auto 73.2 % (50-75); Platelet Count 229 X10^3/uL (150-400); Red Blood Cell Count 4.08 X10^6/uL (4.0-5.2); Red Cell Distribution Width 16.1 % (11.6-14.8); White Blood Cell Count 11.1 X10^3/uL (4.5-11.0)
[2024-05-01 09:39] LABS: Alanine Aminotransferase 20 IU/L (<35); Albumin 3.8 g/dL (3.5-5.0); Albumin Globulin Ratio 1.5 (1.0-2.8); Alkaline Phosphatase 102 U/L (38-126); Aspartate Aminotransferase 23 IU/L (14-36); BUN Creatinine Ratio 18.8 (6-22); Bilirubin Total 0.3 mg/dL (0.2-1.3); Blood Urea Nitrogen 9 mg/dL (7-17); Carbon Dioxide 17 mmol/L (22-32); Chloride 107 mmol/L (98-107); Estimated Glomerular Filt Rate > 60 mL/min (>60); Globulin 2.6 g/dL (1.7-4.1); Glucose 115 mg/dL (70-100); HEMOLYSIS < 15 (0-50); Sodium 134 mmol/L (137-145); Total Protein 6.4 g/dL (6.3-8.2)
[2024-05-01 11:39] LABS: Creatinine Urine Random 121.55 mg/dL; Protein (Total) Urine Random 12 mg/dL (0-12); Protein Creatinine Ratio Urine 0.09 GRAM/24H
== END ==
PROVIDERS: PCP Student in an Organized Health Care Education/Training Program; Referring Provider Student in an Organized Health Care Education/Training Program; Visit Provider Student in an Organized Health Care Education/Training Program
DX: O14.90 Unspecified pre-eclampsia, unspecified trimester (principal)
CPT/HCPCS: 36415; 80053; 82570; 84156; 85025

== ENCOUNTER 2024-05-01 08:57 | Outpatient (CLI) | payer OTHER, SELFPAY | END 2024-05-01 09:45 | disposition home or self-care (01) | LOC: LABOR 08:59 → OB 05-02 08:09 | PROVIDERS: PCP Student in an Organized Health Care Education/Training Program; Referring Provider Student in an Organized Health Care Education/Training Program; Visit Provider Student in an Organized Health Care Education/Training Program | DX: O10.913 Unspecified pre-existing hypertension complicating pregnancy, third trimester (principal); Z3A.34 34 weeks gestation of pregnancy; O14.93 Unspecified pre-eclampsia, third trimester | CPT/HCPCS: 36415; 59025; 80053; 82570; 84156; 85025; G0378; G0379 ==

== ENCOUNTER 2024-05-04 09:08 | Outpatient (CLI) | payer OTHER, SELFPAY | END 2024-05-04 09:49 | disposition home or self-care (01) | LOC: OB 05-09 08:31 | PROVIDERS: PCP Student in an Organized Health Care Education/Training Program; Referring Provider Student in an Organized Health Care Education/Training Program; Visit Provider Student in an Organized Health Care Education/Training Program | DX: O10.913 Unspecified pre-existing hypertension complicating pregnancy, third trimester (principal); Z3A.34 34 weeks gestation of pregnancy | CPT/HCPCS: 59025; G0378; G0379 ==

== ENCOUNTER 2024-05-08 08:52 | Observation (INO) | payer OTHER, SELFPAY ==
[2024-05-08 10:06] LABS: Add Manual Diff / Slide Review NO; Basophils Absolute Auto 0 /uL (0-100); Basophils Percent Auto 0.3 % (0-2); Eosinophils Absolute Auto 100 /uL (0-450); Eosinophils Percent Auto 0.7 % (2-4); Hematocrit 32.4 % (36-46); Hemoglobin 10.8 g/dL (12.0-16.0); Lymphocytes Absolute Auto 1900 /uL (1100-4500); Lymphocytes Percent Auto 18.9 % (25-40); Mean Corpuscular HGB Conc 33.2 % (30-36); Mean Corpuscular Volume 81.2 fL (80-100); Monocytes Absolute Auto 800 /uL (0-900); Monocytes Percent Auto 7.9 % (3-14); Neutrophils Absolute Auto 7100 /uL (1500-7000); Neutrophils Percent Auto 72.2 % (50-75); Platelet Count 215 X10^3/uL (150-400); Red Blood Cell Count 3.98 X10^6/uL (4.0-5.2); Red Cell Distribution Width 15.9 % (11.6-14.8); White Blood Cell Count 9.9 X10^3/uL (4.5-11.0)
[2024-05-08 10:11] LABS: Alanine Aminotransferase 19 IU/L (<35); Albumin 3.7 g/dL (3.5-5.0); Albumin Globulin Ratio 1.3 (1.0-2.8); Alkaline Phosphatase 101 U/L (38-126); Aspartate Aminotransferase 23 IU/L (14-36); BUN Creatinine Ratio 18.2 (6-22); Bilirubin Total 0.3 mg/dL (0.2-1.3); Blood Urea Nitrogen 8 mg/dL (7-17); Calcium 9.7 mg/dL (8.4-10.2); Carbon Dioxide 20 mmol/L (22-32); Chloride 108 mmol/L (98-107); Estimated Glomerular Filt Rate > 60 mL/min (>60); Globulin 2.8 g/dL (1.7-4.1); Glucose 98 mg/dL (70-100); HEMOLYSIS < 15 (0-50); Sodium 135 mmol/L (137-145); Total Protein 6.5 g/dL (6.3-8.2)
[2024-05-08 10:26] LABS: Protein (Total) Urine Random 14 mg/dL (0-12); Protein Creatinine Ratio Urine 0.22 GRAM/24H
== END 2024-05-08 09:58 | disposition home or self-care (01) ==
PROVIDERS: Admitting Provider Student in an Organized Health Care Education/Training Program; PCP Student in an Organized Health Care Education/Training Program; Referring Provider Student in an Organized Health Care Education/Training Program; Visit Provider Student in an Organized Health Care Education/Training Program
DX: O10.913 Unspecified pre-existing hypertension complicating pregnancy, third trimester (principal); Z3A.35 35 weeks gestation of pregnancy
CPT/HCPCS: 80053; 82570; 84156; 85025; G0378; G0379

== ENCOUNTER → 2024-05-11 08:17 | Outpatient (CLI) | payer OTHER, SELFPAY ==
--- NOTE | 2024-05-11 08:18 | DI.US.S_ITS ---
PROCEDURE: US OB LIMITED INDICATIONS: Growth scan due to Pre-Eclampsia OUTSIDE/PRIOR DATING DATA: Last menstrual period (LMP): 09/06/23. LMP-based estimated date of delivery (DEBORAH): 06/12/24. First dating scan (date and location): 10/14/23. Estimated date of delivery (DEBORAH) from first dating scan: 06/13/24. The calculations are made using the most accurate DEBORAH of 06/13/24. TECHNIQUE: Real-time scanning was performed of the fetus, with image documentation and biometric measurements. Endovaginal scanning: Not needed COMPARISON: [facility], OB LIMITED, 04/17/2024, 11:56. FINDINGS: General: A single living intrauterine gestation is present. Presentation: Vertex. Placenta: Placental position is posterior , without previa. Amniotic fluid index: 8.3 cm, normal range is 5-24 cm. Single deepest vertical pocket is 3.7 cm. heart rate: 141 beats per minute. biometrics: Biparietal diameter: 8.6 cm, 34 weeks 6 days Head circumference: 31.9 cm, 35 weeks 6 days Abdominal circumference: 33.2 cm, 37 weeks 1 day Femur length: 7.1 cm, 36 weeks 4 days Clinically estimated gestational age: 35 weeks 3 days Composite gestational age from present scan: 36 weeks 1 day Estimated weight and percentile: 2971 g, 80th percentile Other: Not applicable. IMPRESSION: Single living intrauterine gestation, appropriate interval growth, current weight is at the 80th percentile, within normal limits. Normal amniotic fluid volume. We strive to produce accurate, complete, and clear reports of imaging services. To assist us in improving patient care, this report was composed using standard report templates and voice recognition software. Therefore, it may contain abnormal punctuation, insertions and/or omissions. Occasional wrong-word or sound-alike substitutions may occur. Though we review the report and make efforts to correct it, we do recommend that the report be read carefully in proper context to recognize any text inaccuracies. Dictated by: Ko Jin M.D. on 05/11/2024 at 12:09 Approved by: Ko Jin M.D. on 05/11/2024 at 12:12
== END ==
PROVIDERS: PCP Student in an Organized Health Care Education/Training Program; Referring Provider Student in an Organized Health Care Education/Training Program; Visit Provider Student in an Organized Health Care Education/Training Program
DX: O14.93 Unspecified pre-eclampsia, third trimester (principal); Z3A.36 36 weeks gestation of pregnancy
CPT/HCPCS: 76815

== ENCOUNTER 2024-05-11 08:44 | Outpatient (CLI) | payer OTHER, SELFPAY | END 2024-05-11 10:07 | disposition home or self-care (01) | LOC: LABOR 09:34 → OB 05-15 06:18 | PROVIDERS: PCP Student in an Organized Health Care Education/Training Program; Referring Provider Student in an Organized Health Care Education/Training Program; Visit Provider Student in an Organized Health Care Education/Training Program | DX: O10.913 Unspecified pre-existing hypertension complicating pregnancy, third trimester (principal); Z3A.35 35 weeks gestation of pregnancy; O14.93 Unspecified pre-eclampsia, third trimester; Z3A.36 36 weeks gestation of pregnancy | CPT/HCPCS: 59025; 76815; G0378; G0379 ==

== ENCOUNTER → 2024-05-15 08:24 | Outpatient (CLI) | payer OTHER, SELFPAY ==
[2024-05-15 08:48] LABS: Add Manual Diff / Slide Review NO; Basophils Absolute Auto 0 /uL (0-100); Basophils Percent Auto 0.2 % (0-2); Eosinophils Absolute Auto 100 /uL (0-450); Eosinophils Percent Auto 0.7 % (2-4); Hematocrit 33.7 % (36-46); Hemoglobin 11.1 g/dL (12.0-16.0); Lymphocytes Absolute Auto 2100 /uL (1100-4500); Lymphocytes Percent Auto 21.1 % (25-40); Mean Corpuscular Hemoglobin 26.9 PG (26-34); Mean Corpuscular Volume 81.4 fL (80-100); Monocytes Absolute Auto 500 /uL (0-900); Monocytes Percent Auto 5.2 % (3-14); Neutrophils Absolute Auto 7400 /uL (1500-7000); Neutrophils Percent Auto 72.8 % (50-75); Platelet Count 225 X10^3/uL (150-400); Red Blood Cell Count 4.14 X10^6/uL (4.0-5.2); Red Cell Distribution Width 16.6 % (11.6-14.8); White Blood Cell Count 10.1 X10^3/uL (4.5-11.0)
[2024-05-15 09:14] LABS: Alanine Aminotransferase 18 IU/L (<35); Albumin 3.6 g/dL (3.5-5.0); Albumin Globulin Ratio 1.4 (1.0-2.8); Alkaline Phosphatase 117 U/L (38-126); Aspartate Aminotransferase 22 IU/L (14-36); BUN Creatinine Ratio 14.9 (6-22); Bilirubin Total 0.3 mg/dL (0.2-1.3); Blood Urea Nitrogen 7 mg/dL (7-17); Calcium 9.7 mg/dL (8.4-10.2); Carbon Dioxide 21 mmol/L (22-32); Chloride 107 mmol/L (98-107); Estimated Glomerular Filt Rate > 60 mL/min (>60); Globulin 2.5 g/dL (1.7-4.1); Glucose 135 mg/dL (70-100); HEMOLYSIS < 15 (0-50); Potassium 4.3 mmol/L (3.4-5.1); Sodium 134 mmol/L (137-145); Total Protein 6.1 g/dL (6.3-8.2)
[2024-05-15 09:23] LABS: Creatinine Urine Random 75.94 mg/dL; Protein (Total) Urine Random 10 mg/dL (0-12); Protein Creatinine Ratio Urine 0.13 GRAM/24H
[2024-05-16 11:34] LABS: Strep Grp B PCR POS for Grp B Strep
== END ==
PROVIDERS: PCP Student in an Organized Health Care Education/Training Program; Referring Provider Student in an Organized Health Care Education/Training Program; Visit Provider Student in an Organized Health Care Education/Training Program
DX: O14.90 Unspecified pre-eclampsia, unspecified trimester (principal); Z3A.36 36 weeks gestation of pregnancy
CPT/HCPCS: 36415; 80053; 82570; 84156; 85025; 87653

== ENCOUNTER 2024-05-15 08:36 | Outpatient (CLI) | payer OTHER, SELFPAY | END 2024-05-15 09:14 | disposition home or self-care (01) | LOC: LABOR 08:58 → OB 05-18 06:08 | PROVIDERS: PCP Student in an Organized Health Care Education/Training Program; Referring Provider Student in an Organized Health Care Education/Training Program; Visit Provider Student in an Organized Health Care Education/Training Program | DX: O10.913 Unspecified pre-existing hypertension complicating pregnancy, third trimester (principal); Z3A.36 36 weeks gestation of pregnancy | CPT/HCPCS: 36415; 59025; 80053; 82570; 84156; 85025; 87653; G0378; G0379 ==

== ENCOUNTER 2024-05-19 09:20 | Observation (INO) | payer OTHER, SELFPAY | END 2024-05-19 10:35 | disposition home or self-care (01) | PROVIDERS: Admitting Provider Student in an Organized Health Care Education/Training Program; PCP Student in an Organized Health Care Education/Training Program; Referring Provider Student in an Organized Health Care Education/Training Program; Visit Provider Student in an Organized Health Care Education/Training Program | DX: O10.913 Unspecified pre-existing hypertension complicating pregnancy, third trimester (principal); Z3A.36 36 weeks gestation of pregnancy | CPT/HCPCS: 59025; G0378; G0379 ==

== ENCOUNTER 2024-05-19 11:13 | Observation (INO) | payer OTHER, SELFPAY ==
--- NOTE | 2024-05-19 11:17 | DI.US.S_ITS ---
PROCEDURE: US OB LIMITED INDICATIONS: pre eclampsia OUTSIDE/PRIOR DATING DATA: The calculations are made using the working DEBORAH of 06/12/2024. TECHNIQUE: Real-time scanning was performed of the fetus, with image documentation and biometric measurements. Endovaginal scanning: Not performed COMPARISON: [facility], OB LIMITED, 05/11/2024, 8:27. FINDINGS: General: A single living intrauterine gestation is present. Presentation: Vertex. Placenta: Placental position is posterior , without previa. Amniotic fluid index: 11.3 cm, normal range is 5-24 cm. Single deepest vertical pocket is 5.6 cm. heart rate: 145 beats per minute. Maternal cervical canal: Not evaluated biometrics: Biparietal diameter: 8.9 cm, 36 weeks 1 day Head circumference: 32.8 cm, 37 weeks 2 days Abdominal circumference: 33.7 cm, 37 weeks 4 days Femur length: 7.2 cm, 36 weeks 5 days Clinically estimated gestational age: 36 weeks 4 days Composite gestational age from present scan: 37 weeks 0 days Estimated weight and percentile: 3139 g, 71 percentile Other: BPP 8 of 8. IMPRESSION: Single living intrauterine at 36 weeks 4 days, DEBORAH of 06/12/2024. Estimated weight of 3139 g, 71 percentile. BPP 8 of 8. We strive to produce accurate, complete, and clear reports of imaging services. To assist us in improving patient care, this report was composed using standard report templates and voice recognition software. Therefore, it may contain abnormal punctuation, insertions and/or omissions. Occasional wrong-word or sound-alike substitutions may occur. Though we review the report and make efforts to correct it, we do recommend that the report be read carefully in proper context to recognize any text inaccuracies. Dictated by: Mitchel Jonsa M.D. on 05/19/2024 at 12:02 Approved by: Mitchel Jonas M.D. on 05/19/2024 at 12:03
[2024-05-19 11:43] LABS: Add Manual Diff / Slide Review NO; Basophils Absolute Auto 0 /uL (0-100); Basophils Percent Auto 0.3 % (0-2); Eosinophils Absolute Auto 100 /uL (0-450); Eosinophils Percent Auto 0.6 % (2-4); Hematocrit 34.7 % (36-46); Hemoglobin 11.5 g/dL (12.0-16.0); Lymphocytes Absolute Auto 2200 /uL (1100-4500); Lymphocytes Percent Auto 21.4 % (25-40); Mean Corpuscular Hemoglobin 26.8 PG (26-34); Monocytes Absolute Auto 900 /uL (0-900); Monocytes Percent Auto 8.5 % (3-14); Neutrophils Absolute Auto 6900 /uL (1500-7000); Neutrophils Percent Auto 69.2 % (50-75); Platelet Count 230 X10^3/uL (150-400); Red Blood Cell Count 4.28 X10^6/uL (4.0-5.2); Red Cell Distribution Width 16.3 % (11.6-14.8)
[2024-05-19 11:54] LABS: Alanine Aminotransferase 20 IU/L (<35); Albumin Globulin Ratio 1.3 (1.0-2.8); Alkaline Phosphatase 113 U/L (38-126); Aspartate Aminotransferase 25 IU/L (14-36); BUN Creatinine Ratio 16.7 (6-22); Bilirubin Total 0.3 mg/dL (0.2-1.3); Blood Urea Nitrogen 8 mg/dL (7-17); Calcium 9.8 mg/dL (8.4-10.2); Carbon Dioxide 19 mmol/L (22-32); Chloride 107 mmol/L (98-107); Estimated Glomerular Filt Rate > 60 mL/min (>60); Glucose 109 mg/dL (70-100); HEMOLYSIS < 15 (0-50); Potassium 4.3 mmol/L (3.4-5.1); Sodium 135 mmol/L (137-145); Uric Acid 5.6 mg/dL (2.5-6.2)
[2024-05-19 11:55] LABS: Creatinine Urine Random 32.43 mg/dL; Protein (Total) Urine Random 12 mg/dL (0-12); Protein Creatinine Ratio Urine 0.37 GRAM/24H
== END 2024-05-19 12:16 | disposition home or self-care (01) ==
PROVIDERS: Admitting Provider Student in an Organized Health Care Education/Training Program; PCP Student in an Organized Health Care Education/Training Program; Referring Provider Student in an Organized Health Care Education/Training Program; Visit Provider Student in an Organized Health Care Education/Training Program
DX: O10.913 Unspecified pre-existing hypertension complicating pregnancy, third trimester (principal); Z3A.36 36 weeks gestation of pregnancy
CPT/HCPCS: 59025; 76815; 76819; 80053; 84550; 85025; G0378; G0379

== ENCOUNTER 2024-05-22 13:29 | Observation (INO) | payer OTHER, SELFPAY ==
--- NOTE | 2024-05-22 13:41 | DI.US.S_ITS ---
PROCEDURE: US OB BIOPHYSICAL PROFILE INDICATIONS: pre-eclampsia OUTSIDE/PRIOR DATING DATA: Last menstrual period (LMP): September 05, 2024. LMP-based estimated date of delivery (DEBORAH): June 12, 2024. First dating scan (date and location): October 14, 2023. Estimated date of delivery (DEBORAH) from first dating scan: June 13, 2024. The calculations are made using the last menstrual period DEBORAH of June 12, 2024. TECHNIQUE: Real-time scanning was performed of the fetus for biophysical profile, with image documentation. Color and pulse Doppler interrogation was also performed of the umbilical artery near its insertion into the placenta. Endovaginal scanning: Not performed COMPARISON: [facility], OB LIMITED, 05/19/2024, 11:27. FINDINGS: General: A single living intrauterine gestation is present. Presentation: Vertex. Placenta: Placental position is posterior , without previa. Amniotic fluid index: 11.0 cm, normal range is 5-24 cm. Single deepest vertical pocket is 5.0 cm. heart rate: 140 beats per minute. Maternal cervical canal: Maternal cervix not well visualized on this examination. Clinically estimated gestational age: 37 weeks and 0 days Biophysical profile: Tone: 2 points. Movement: 2 points. Respiration: 2 points. Largest pocket of fluid: 2 points. IMPRESSION: Single living intrauterine gestation. Estimated gestational age of approximately 37 weeks and 0 days. Biophysical profile score of 8 out of 8. Four-quadrant AMY measures 11.0 cm with largest vertical pocket measuring 5.0 cm . We strive to produce accurate, complete, and clear reports of imaging services. To assist us in improving patient care, this report was composed using standard report templates and voice recognition software. Therefore, it may contain abnormal punctuation, insertions and/or omissions. Occasional wrong-word or sound-alike substitutions may occur. Though we review the report and make efforts to correct it, we do recommend that the report be read carefully in proper context to recognize any text inaccuracies. Dictated by: Fernando Hidalgo M.D. on 05/22/2024 at 18:13 Approved by: Fernando Hidalgo M.D. on 05/22/2024 at 18:16
[2024-05-22 14:18] LABS: Alanine Aminotransferase 19 IU/L (<35); Albumin Globulin Ratio 1.3 (1.0-2.8); Alkaline Phosphatase 121 U/L (38-126); Aspartate Aminotransferase 24 IU/L (14-36); Bilirubin Total 0.3 mg/dL (0.2-1.3); Blood Urea Nitrogen 8 mg/dL (7-17); Calcium 9.8 mg/dL (8.4-10.2); Carbon Dioxide 18 mmol/L (22-32); Chloride 108 mmol/L (98-107); Estimated Glomerular Filt Rate > 60 mL/min (>60); Glucose 101 mg/dL (70-100); HEMOLYSIS < 15 (0-50); Potassium 4.2 mmol/L (3.4-5.1); Sodium 135 mmol/L (137-145); Uric Acid 5.5 mg/dL (2.5-6.2)
[2024-05-22 14:20] LABS: Creatinine Urine Random 109.39 mg/dL; Protein (Total) Urine Random 9 mg/dL (0-12); Protein Creatinine Ratio Urine 0.08 GRAM/24H
[2024-05-22 14:37] LABS: Add Manual Diff / Slide Review NO; Basophils Absolute Auto 0 /uL (0-100); Basophils Percent Auto 0.3 % (0-2); Eosinophils Absolute Auto 100 /uL (0-450); Eosinophils Percent Auto 0.9 % (2-4); Hematocrit 33.8 % (36-46); Hemoglobin 11.3 g/dL (12.0-16.0); Lymphocytes Absolute Auto 1900 /uL (1100-4500); Lymphocytes Percent Auto 18.7 % (25-40); Mean Corpuscular HGB Conc 33.5 % (30-36); Mean Corpuscular Hemoglobin 27.1 PG (26-34); Mean Corpuscular Volume 80.9 fL (80-100); Monocytes Absolute Auto 1000 /uL (0-900); Monocytes Percent Auto 9.7 % (3-14); Neutrophils Absolute Auto 7300 /uL (1500-7000); Neutrophils Percent Auto 70.4 % (50-75); Platelet Count 224 X10^3/uL (150-400); Red Blood Cell Count 4.17 X10^6/uL (4.0-5.2); Red Cell Distribution Width 16.4 % (11.6-14.8); White Blood Cell Count 10.4 X10^3/uL (4.5-11.0)
== END 2024-05-22 15:37 | disposition home or self-care (01) ==
PROVIDERS: Admitting Provider Student in an Organized Health Care Education/Training Program; PCP Student in an Organized Health Care Education/Training Program; Referring Provider Student in an Organized Health Care Education/Training Program; Visit Provider Student in an Organized Health Care Education/Training Program
DX: O10.913 Unspecified pre-existing hypertension complicating pregnancy, third trimester (principal); Z3A.37 37 weeks gestation of pregnancy
CPT/HCPCS: 36415; 59025; 76819; 80053; 82570; 84156; 84550; 85025; 86850; 86900; 86901; G0378; G0379

== ENCOUNTER 2024-05-23 06:25 | Inpatient (IN) | payer OTHER, SELFPAY ==
[2024-05-23 07:42] LABS: Add Manual Diff / Slide Review NO; Basophils Absolute Auto 0 /uL (0-100); Basophils Percent Auto 0.2 % (0-2); Eosinophils Absolute Auto 100 /uL (0-450); Eosinophils Percent Auto 0.9 % (2-4); Hematocrit 33.6 % (36-46); Hemoglobin 11.3 g/dL (12.0-16.0); Lymphocytes Absolute Auto 2100 /uL (1100-4500); Lymphocytes Percent Auto 20.2 % (25-40); Mean Corpuscular HGB Conc 33.8 % (30-36); Mean Corpuscular Hemoglobin 27.2 PG (26-34); Mean Corpuscular Volume 80.5 fL (80-100); Monocytes Absolute Auto 900 /uL (0-900); Monocytes Percent Auto 8.3 % (3-14); Neutrophils Absolute Auto 7400 /uL (1500-7000); Neutrophils Percent Auto 70.4 % (50-75); Platelet Count 221 X10^3/uL (150-400); Red Blood Cell Count 4.17 X10^6/uL (4.0-5.2); Red Cell Distribution Width 16.6 % (11.6-14.8); White Blood Cell Count 10.5 X10^3/uL (4.5-11.0)
[2024-05-23] MEDS: OXYTOCIN PREMIX 30 UNIT/500 ML PLAST..BAG IV (08:06)
[2024-05-23] MEDS: LACTATED RINGERS 1,000 ML 100 ML IV (08:07)
[2024-05-23] MEDS: AMPICILLIN 2,000 MG in SODIUM CHLORIDE 0.9% 100 ML 200 MG IV (08:07)
--- NOTE | 2024-05-23 09:22 | P.HPOB_ITS ---
OB HPI Date/Time Date of admission: 05/23/24 Date Patient Seen: 05/23/24 Time Patient Seen: 08:00 History of Present Condition Chief complaint: induction DEBORAH Calculator 2 Estimated Delivery Date Method Current WG Current Estimate 06/12/24 LMP (Certain) 37w 1d : 3 Para: 1 Narrative: This is a 28 yo at 37w1d here for induction of labor for chronic hypertension with superimposed pre-eclampsia. She has a hx of severe pre- eclampsia (delivery at 35 weeks) with severe PPH (5 units blood transfused and uterine artery embolization). She is currently on 400 mg labetalol TID and 30 mg procardia. She was seen by MFM throughout . She is GBS positive. care: good care Dating criteria OB: LMP confirmed by 1st trimester US Ultrasounds: normal 1st trimester US and normal mid trimester US Obstetrical complications: gestational hypertension Medical complications OB: none Indications Indication for induction OB: gestational HTN/pre-eclampsia Preadmission Labs Last OB Lab Results: 2 Blood Type O Positive 05/23/24 07:00 Antibody Screen Negative 05/23/24 07:00 Hct 33.6 % (36-46) L 05/23/24 07:00 Hgb 11.3 g/dL (12.0-16.0) L 05/23/24 07:00 Hep Bs Antigen Negative s/c (NEGATIVE) 11/15/23 16:38 Hepatitis C Antibody Negative s/c (NEGATIVE) 11/15/23 16:38 Rubella Antibody 5.6 IU/mL (>15) L 11/15/23 16:38 VZV IgG Antibody 416 index (Immune >165) 11/15/23 16:38 Glucose 1 Hr 50 gm 116 mg/dL (76-139) 03/06/24 11:58 Hemoglobin A1c 5.1 % (4.0-6.0) 11/15/23 16:38 Group B Strep (PCR) Pos for grp b strep H 05/15/24 10:30 Glucose Tolerance Testin hr Genetic Screens: Cell-free DNA: Normal Prior (ies) Past Pregnancies Del. Date GA/Weeks Labor Lgth Wt Sex Route Outcome Anesthesia Place Delv Breastfeed Preg Comp Name 03/24/21 4 spontaneous 01/25/23 35 48 6 lb 8 oz Female vaginal live - epid ural UW Attempted, pumped 7 months pre-eclampsia hemorrhage Alem Delivery Date: 03/24/21 Last Updated by: Amira Palma RN passed spontaneously Delivery Date: 01/25/23 Last Updated by: Amira Palma RN ~2800 EBL, required Bakri balloon followed by additional clot evacuation; ~5 units PRBCs transfused Evaluation Evaluation Baseline heart rate: 135 Variability: Average (6-10) monitor accelerations: Present Monitor Decelerations: Absent Category of Tracing: Reactive Status: Category l Dilation (cm): 2 Effacement (%): 50 Dilation: 1-2 cm Effacement: 40-50% station: -2 Position of cervix: posterior Consistency: soft Cormier score: 5 PFSH Medical History PTSD (post-traumatic stress disorder) anxiety depression Oral contraceptive use Pelvic pain in female Malpositioned intrauterine device (IUD) Hemorrhage, delayed Pre-eclampsia, severe, antepartum Size of fetus inconsistent with dates in third trimester Obesity affecting in third trimester Gestational hypertension affecting first Obesity Surgical History History of tonsillectomy H/O oral surgery Family History Family/Other Breast cancer Father Hypertension Mother Contact dermatitis Grandmother Obesity Hypertension Social History marital status: number of children: 1 household members: spouse lives independently: Yes caregiver/support person: Yes housing: condominium pets and animals: Yes (2 dogs) education level: high school occupational status: employed current occupational exposures/hazards: No special ish needs: No travel history: recent seatbelt use: always water heater temp set < 120 deg: Yes working smoke detector in home: Yes fire extinguisher in home: Yes carbon monox detector in home: Yes firearms in home: No do you feel safe at home: Yes Smoking Status: Never smoker second hand exposure: No alcohol intake: former substance use type: does not use during the past year weight has: decreased > 10 lbs well-balanced diet: about half the time daily servings fruits/ve-4 caffeine: Yes (ice tea and diet cola occasionally) Type(s) of exercise: walking Meds Home Medications and Allergies Home Medications Medication Instructions Recorded Confirmed Type vitamin-ferrous sulfate tab PO 10/07/23 05/19/24 History 27 mg iron-folic acid 0.8 mg tablet labetalol 200 mg tablet 400 mg (2 x 200 mg) PO TID #180 04/25/24 05/23/24 Rx tabs nifedipine 30 mg tablet,extended 30 mg PO DAILY #30 tabs 05/04/24 05/23/24 Rx release 24 hr (Procardia XL) ferrous sulfate 325 mg (65 mg 325 mg PO Q OTHER DAY 05/23/24 05/23/24 History iron) tablet,delayed release Allergies Allergy/AdvReac Type Severity Reaction Status Date / Time No Known Allergies Allergy Verified 05/19/24 10:58 OB Exam Vital signs Blood Pressure: 123/67 Pulse Rate: 88 Temperature: 36.3 F Objective Labs 05/23/24 07:00 Labs: Laboratory Results - last 24 hr 05/23/24 07:00 WBC 10.5 RBC 4.17 Hgb 11.3 L Hct 33.6 L MCV 80.5 MCH 27.2 MCHC 33.8 RDW 16.6 H Plt Count 221 Neut % (Auto) 70.4 Lymph % (Auto) 20.2 L [place] % (Auto) 8.3 Eos % (Auto) 0.9 L Baso % (Auto) 0.2 Neut # (Auto) 7400 H Lymph # (Auto) 2100 [place] # (Auto) 900 Eos # (Auto) 100 Baso # (Auto) 0 Blood Type O Positive Antibody Screen Negative Assessment and Plan Assessment and Plan Assessment and Plan narrative: 28 yo here for IOL for chronic hypertension with superimposed pre- eclampsia. Hx of severe PPH. GBS pos. CHTN/Pre-eclampsia without severe features -continue labetalol 400 mg TID + procardia 30 mg Hx of Severe PPH -cross and match 2 units -OBGYN aware of patient and hx GBS pos -start antibiotics now IOL -SVE /-2 -start low dose pitocin -consider wilsno bulb if not feeling painful contractions in 2 hours Time-Based Coding :: 45 minutes spent with patient and on the chart (including review of chart, obtaining history, exam, reviewing outside data, placing orders, documenting exam and treatment plan, and counseling patient) on 05/23/2024.
[2024-05-23 09:33] VITALS: BP 123/67; PULSE 88; TEMP 2.4; TEMP 36.3
[2024-05-23 10:06] VITALS: BP 121/59
--- NOTE | 2024-05-23 10:43 | PM.AN.REGBLK ---
[facility] <Vick Haywood, DO - Last Filed: 05/24/24 09:47> Pre-procedure PMH/ROS narrative: 28 yo at 37+1 IOL for chronic hypertension with superimposed pre-eclampsia. (+)Hx of severe pre-eclampsia with severe PPH (5 units blood transfused and uterine artery embolization). Currently on 400 mg labetalol TID and 30 mg nifedipine. Followed by MFM throughout . CBC and chemistry WNL. BMI 46. ASA Class: III Labs: Hct 33.6 % (36-46) L 05/23/24 07:00 Plt Count 221 X10^3/uL (150-400) 05/23/24 07:00 Medications: Current Medications Generic Name Dose Route Start Last Admin Trade Name Freq PRN Reason Stop Dose Admin Calcium Carbonate 1,000 mg 05/23/24 07:34 Calcium Carbonate 500 Mg Tab PO Q2HR PRN Dyspepsia Carboprost Tromethamine 250 mcg 05/23/24 07:32 Carboprost 250 Mcg/Ml Ampul IM Q90M PRN Bleeding Oxytocin/Lactated Ringer's 30 unit in 500 mls @ 200 mls/hr 05/23/24 07:32 Oxytocin Premix IV CONT PRN Bleeding Protocol Tranexamic Acid 1,000 mg/ 100 mls @ 600 mls/hr 05/23/24 07:32 Sodium Chloride IV NOW PRN Bleeding Oxytocin/Lactated Ringer's 30 unit in 500 mls @ 2 mls/hr 05/23/24 07:45 05/23/24 08:06 Oxytocin Premix IV 2 milliunit/min TITRATE CODY 2 mls/hr Administration Protocol 2 MILLIUNIT/MIN Lactated Ringer's 1,000 mls @ 100 mls/hr 05/23/24 07:45 05/23/24 08:07 Lactated Ringers IV 05/23/24 17:44 100 mls/hr CONT CODY Administration Labetalol HCl 400 mg 05/23/24 09:45 05/23/24 10:06 Labetalol 100 Mg Tablet PO Not Given TID CODY Lidocaine HCl 20 ml 05/23/24 07:32 Lidocaine 1% 20 Ml INJ INTRA-OP PRN Post Delivery Methylergonovine Maleate 0.2 mg 05/23/24 07:32 Methylergonovine 0.2 Mg Tablet PO Q6HR PRN Heavy Bleeding Methylergonovine Maleate 0.2 mg 05/23/24 07:32 Methylergonovine 0.2 Mg/Ml Vial IM NOW PRN Bleeding Mineral Oil 30 ml 05/23/24 07:32 Mineral Oil 30 Ml Udc TOP PRN PRN Version Misoprostol 800 mcg 05/23/24 07:32 Misoprostol 200 Mcg Tablet ME NOW PRN Bleeding Misoprostol 400 mcg 05/23/24 07:32 Misoprostol 200 Mcg Tablet SL NOW PRN Bleeding Naloxone HCl 0.2 mg 05/23/24 07:32 Naloxone 0.4 Mg/Ml Vial IV Q2MIN PRN Opiate Reversal Nifedipine 30 mg 05/23/24 21:00 Nifedipine 30 Mg Tab Er PO DAILY CODY Ondansetron HCl 4 mg 05/23/24 07:34 Ondansetron 4 Mg/2 Ml Inj IV Q4HR PRN Nausea And Vomiting Oxytocin 10 unit 05/23/24 07:32 Oxytocin 10 Unit/Ml Vial IM NOW PRN Bleeding Allergies: Allergies Allergy/AdvReac Type Severity Reaction Status Date / Time No Known Allergies Allergy Verified 05/19/24 10:58 Procedure Insertion date: 05/23/24 Insertion time: 11:13 Prep/Local: betadine x3 and 1% lidocaine Interspace: L34 Patient position: sitting Needle: 18 gauge Geodruidtead (CSE: 27g Pencan through Hustead, clear CSF, 1mL 0.25% MPF bupiv) Loss of resistance with: saline JAYLENE at (cm): 7 Catheter placed at SKIN (cm): 14 Catheter in SPACE (cm): 7 Insertion: No CSF, No Blood, No Paresthesia with insertion, No Paresthesia with injection and No Test dose reaction Initial Medications TEST DOSE time: 11:14 TEST DOSE: 1.5% lidocaine with epinephrine 1:200k (mL): 3 BOLUS DOSE time: 11:20 BOLUS DOSE (mL): 4 BOLUS DOSE med: other (infusate) Infusion INFUSION: 0.125% bupivacaine and with fentanyl 2 mcg/mL Initial rate (mL/hr): 10 Post-procedure Anesthesia date START: 05/23/24 Anesthesia time START: 11:00 <Ashley Haque CRNA - Last Filed: 05/24/24 07:55> Pre-procedure --: 1900 pt with c/o painful pressure in lower abdomen, vagina, and lower back. education and reassurance provided. bolused with fentnayl 50 mcg, bupivacaine 0.25% 3cc. 1951 pt still having painful pressure however it is better than before. provided reassurance. 2007 pt anxious regarding pressure, provided reassurance that what she is feeling is normal. Post-procedure Anesthesia date END: 05/24/24 Anesthesia time END: 00:45 Post-procedure Anesthesia Assessment: Yes CV function: HR/BP stable, Yes Resp function: RR/sat/airway adequate, Yes Post-op hydration adequate, Yes Pain control adequate, Yes Nausea & vomiting absent, Yes Temperature > 36 C, Yes Mental status appropriate and No Anesthesia complications
[2024-05-23 11:30] VITALS: BP 118/57
[2024-05-23] MEDS: AMPICILLIN 1,000 MG in SODIUM CHLORIDE 0.9% 100 ML 200 MG IV ×3 (11:51→20:20)
--- NOTE | 2024-05-23 12:40 | PM.OBPNLAB ---
Date/Time Date Patient Seen: 05/23/24 Time Patient Seen: 12:15 Pain Control Pain control: tolerating well and epidural Pelvic Exam Dilation (cm): 4 Effacement (%): 75 station: -1 Amniotic membrane status: Ruptured Comments: AROM with exam Contractions Contractions on admission: irregular Monitor mode: External Pitocin rate (mU/min): 8 Contraction frequency (min): 3 Contraction pattern: Regular Status status: Category l Heart Rate Baseline: 125 Monitor Accelerations: Present Monitor Decelerations: Absent Monitor Variability: Moderate Assessment and Plan Assessment: induction ongoing Plan: continuous present management Comments: S/p wilson balloon plus pitocin. Wilson out - SVE /-1. Arom at 12:15 -continue pitocin titration -patient comfortable with epidural
[2024-05-23 12:51] VITALS: BP 138/63; PULSE 88
[2024-05-23] MEDS: LABETALOL 100 MG TABLET 400 MG PO (12:51)
[2024-05-23] MEDS: OXYMETAZOLINE NASAL SPRAY 30 ML 2 SPRAYS NASAL (12:53)
[2024-05-23] MEDS: ACETAMINOPHEN 325 MG TABLET 650 MG PO (13:21)
[2024-05-23] MEDS: FENT 2MCG/ML BUPIV 0.125% EPI 200 MCG/100 ML PLAST..BAG 10 MCG EPIDURAL ×2 (16:16→23:04)
--- NOTE | 2024-05-23 17:10 | PM.OBPNLAB ---
Date/Time Date Patient Seen: 05/23/24 Time Patient Seen: 05:00 Pain Control Pain control: tolerating well and epidural Pelvic Exam Dilation (cm): 8 Effacement (%): 90 station: -1 Amniotic membrane status: Ruptured Contractions Monitor mode: External Pitocin rate (mU/min): 20 Contraction frequency (min): 3 Contraction pattern: Regular Status status: Category l Heart Rate Baseline: 125 Monitor Accelerations: Present Monitor Decelerations: Absent Monitor Variability: Moderate Assessment and Plan Assessment: active labor and induction ongoing Plan: continuous present management Comments: IOL for ghtn with superimposed pre-e without severe features. -s/p wilson balloon, AROM, ongoing pitocin -continue position changes, SVE /-1 -anticipate
--- NOTE | 2024-05-23 20:27 | PM.OBPNLAB ---
Date/Time Date Patient Seen: 05/23/24 Time Patient Seen: 20:30 Pain Control Pain control: epidural Pelvic Exam Dilation (cm): 8 Effacement (%): 90 station: -1 Amniotic membrane status: Ruptured Contractions Monitor mode: External Pitocin rate (mU/min): 20 Contraction frequency (min): 3 Contraction pattern: Regular Status status: Category l Heart Rate Baseline: 135 Assessment and Plan Assessment: induction ongoing Plan: other Comments: IOL for chtn with superimposed pre-e without severe features. -s/p wilson balloon, AROM, ongoing pitocin -SVE remains at 8/90/-1; position feels direct OT facing maternal right -will do 30 min pitocin break, will recheck and place IUPC for titration of pitocin -will continue position changes
[2024-05-23] MEDS: ONDANSETRON 4 MG/2 ML INJ IV (21:39)
[2024-05-23] MEDS: FAMOTIDINE 20 MG/2 ML VIAL IV (23:21)
--- NOTE | 2024-05-23 23:25 | PM.OBPNLAB ---
Date/Time Date Patient Seen: 05/23/24 Pain Control Pain control: epidural Pelvic Exam Dilation (cm): 9.5 Effacement (%): 90 station: -1 Amniotic membrane status: Ruptured Contractions Monitor mode: External Pitocin rate (mU/min): 12 Contraction frequency (min): 3 Contraction pattern: Regular Status status: Category l Heart Rate Baseline: 125 Monitor Accelerations: Present Monitor Decelerations: Absent Monitor Variability: Moderate Assessment and Plan Assessment: induction ongoing Plan: continuous present management Comments: IOL for chtn with superimposed pre-e without severe features. -s/p wilson balloon, AROM, pitocin -s/p 30 minute pitocin break, restarted at 10 units, now titrated to 12 units -SVE 9.5/100/-1 with reducible anterior lip; started pushing with minimal movement over 45 minutes, did bring baby down to 0 station -will take break from pushing for 30 minutes to assess progress with pitocin alone and avoid maternal exhaustion
[2024-05-24] MEDS: AMPICILLIN 1,000 MG in SODIUM CHLORIDE 0.9% 100 ML 200 MG IV (00:22)
[2024-05-24] MEDS: OXYTOCIN PREMIX 30 UNIT/500 ML PLAST..BAG 350 UNIT IV (00:43)
[2024-05-24] MEDS: TRANEXAMIC ACID 1,000 MG in SODIUM CHLORIDE 0.9% 100 ML 200 MG IV (00:44)
[2024-05-24] MEDS: miSOPROStoL 200 MCG TABLET 800 MCG PR (00:48)
--- NOTE | 2024-05-24 01:06 | PM.OBPRVD ---
Events: Pre-Eclampsia and Labor Induction Labor & Delivery Delivery date: 05/24/24 Delivery Time: 00:40 Intrapartal Events: Mild Preeclampsia Cervical ripening method: per Wilson bulb protocol Induction method: per pitocin protocol Delivery augmentation: rupture of membranes Delivery monitor: external FHT Route of delivery: Episiotomy description: None L&D Laceration Description: None Estimated blood loss (mL): 500 Anesthesia Type: Epidural Narrative: Patient is a 28 yo G3 now P2 who had IOL for chtn with superimposed pre-e without severe features at 37w1d with delivery occurring on 37w2d. She progressed to complete following wilson bulb, pitocin, and AROM. She pushed effectively for approximately an hour. Baby delivered in OA positioning. There was a loose nuchal cord. Pitocin bolus was started immediately. Cord was clamped and cut at 3 minutes of life. TXA 1 gm was given following cord being clamped and cut for hx of severe PPH. Bleeding was brisk initially. Uterine sweep revealed boggy lower uterine segment with clot burden. Following removal of clot burden, bleeding slowed to a trickle. 800 misoprostol was given rectally. She had no lacerations. Plan for aftercare: Routine care
[2024-05-24] MEDS: NIFEdipine 30 MG TAB ER PO ×3 (01:58→21:13)
[2024-05-24] MEDS: IBUPROFEN 600 MG TABLET PO ×4 (02:01→23:17)
[2024-05-24] MEDS: ACETAMINOPHEN 325 MG TABLET 650 MG PO ×4 (02:02→23:17)
[2024-05-24 08:39] VITALS: BP 140/46; PULSE 80
[2024-05-24] MEDS: LABETALOL 100 MG TABLET 400 MG PO ×2 (08:39→17:11)
[2024-05-24] MEDS: PRENATAL VIT,CALC/IRON/FOLIC 1 TABLET 1 TAB PO (08:40)
[2024-05-24] MEDS: FERROUS SULFATE 325 MG TABLET PO (08:41)
--- NOTE | 2024-05-24 10:13 | P.PNOB_ITS ---
Subjective - OB Subjective Patient comments: no complaints and pain well controlled [place] baby status: doing well and nursing well feeding status: breast and bottle feeding Narrative: Patient is s/p at 00:40 today. Bleeding is like a period. well, but plans to transition to formula in the next few days. Pain controlled. Date Patient Seen: 05/24/24 Time Patient Seen: 08:45 Exam Vital Signs (past 8 hours): - 05/24/24 08:39 Pulse Rate 80 Blood Pressure 140/46 L Objective Labs 05/23/24 07:00 Labs: Laboratory Results - last 24 hr 05/23/24 07:00 Blood Type O Positive Antibody Screen Negative Crossmatch See Detail Assessment & Plan Plan day: 0 plan OB: routine care Comments: #CHTN with superimposed pre-eclamsia without severe features -reduce labetalol to 200 mg TID from 400 mg TID -continue procardia 30 mg XL -CMP and CBC #Hx of PPH EBL 500 -Received TXA, 800 mcg misoprostol and pitocin bolus; clot burden from uterine sweep following delivery -bleeding well controlled -will monitor for additional 24 hours # -routine care Time-Based Coding :: 30 minutes spent with patient and on the chart (including review of chart, obtaining history, exam, reviewing outside data, placing orders, documenting exam and treatment plan, and counseling patient) on 05/24/24.
[2024-05-24] MEDS: OXYCODONE IR 5 MG TABLET PO ×2 (10:32→18:29)
[2024-05-24 12:39] LABS: Add Manual Diff / Slide Review NO; Basophils Absolute Auto 0 /uL (0-100); Basophils Percent Auto 0.1 % (0-2); Eosinophils Absolute Auto 100 /uL (0-450); Eosinophils Percent Auto 0.3 % (2-4); Hematocrit 33.3 % (36-46); Hemoglobin 10.8 g/dL (12.0-16.0); Lymphocytes Absolute Auto 2400 /uL (1100-4500); Lymphocytes Percent Auto 15.2 % (25-40); Mean Corpuscular HGB Conc 32.4 % (30-36); Mean Corpuscular Hemoglobin 26.3 PG (26-34); Mean Corpuscular Volume 81.1 fL (80-100); Monocytes Absolute Auto 1400 /uL (0-900); Monocytes Percent Auto 8.9 % (3-14); Neutrophils Absolute Auto 12200 /uL (1500-7000); Neutrophils Percent Auto 75.5 % (50-75); Platelet Count 227 X10^3/uL (150-400); Red Blood Cell Count 4.11 X10^6/uL (4.0-5.2); Red Cell Distribution Width 16.3 % (11.6-14.8); White Blood Cell Count 16.1 X10^3/uL (4.5-11.0)
[2024-05-24 12:41] LABS: Alanine Aminotransferase 19 IU/L (<35); Albumin 3.6 g/dL (3.5-5.0); Albumin Globulin Ratio 1.3 (1.0-2.8); Alkaline Phosphatase 120 U/L (38-126); Aspartate Aminotransferase 42 IU/L (14-36); BUN Creatinine Ratio 19.3 (6-22); Bilirubin Total 0.6 mg/dL (0.2-1.3); Blood Urea Nitrogen 11 mg/dL (7-17); Calcium 9.7 mg/dL (8.4-10.2); Carbon Dioxide 21 mmol/L (22-32); Chloride 107 mmol/L (98-107); Estimated Glomerular Filt Rate > 60 mL/min (>60); Globulin 2.8 g/dL (1.7-4.1); Glucose 88 mg/dL (70-100); HEMOLYSIS < 15 (0-50); Potassium 4.3 mmol/L (3.4-5.1); Sodium 134 mmol/L (137-145); Total Protein 6.4 g/dL (6.3-8.2)
[2024-05-24 17:11] VITALS: BP 124/51; PULSE 81
[2024-05-24 22:33] VITALS: BP 141/49; PULSE 81
[2024-05-24] MEDS: LABETALOL 100 MG TABLET 200 MG PO (22:33)
[2024-05-25] MEDS: OXYCODONE IR 5 MG TABLET PO (01:51)
[2024-05-25] MEDS: ACETAMINOPHEN 325 MG TABLET 650 MG PO ×2 (05:19→10:30)
[2024-05-25] MEDS: IBUPROFEN 600 MG TABLET PO ×2 (05:19→10:29)
--- NOTE | 2024-05-25 08:01 | PM.OBDS.1 ---
Discharge Providers Provider Date of admission: 05/23/24 06:25 Discharge Date: 05/25/24 Primary care physician: Lucretia Jacques MD Consults: 05/23/24 07:32 Consult to Anesthesiology Urgent Comment: Consulting Provider: Anesthesiologist Reason for consultation: Epidural 05/25/24 01:12 Consult to Supervisor Wet Room Routine Comment: Discharge provider: Lucretia Jacques MD Summary Hospital Course Date Patient Seen: 05/25/24 Time Patient Seen: 07:30 Diagnoses: chronic hypertension affecting pregancy, pre-eclampsia without severe features, 37 weeks gestation Hospital Course: Patient is a 28 yo G3 now P2 who was induced at 37w1d for CHTN with superimposed pre-e without severe features. Delivery occurred on 05/25 at 37w2d. She had a hx of hemorrhage requiring uterine artery embolization and received prophylactic TXA following clamping of cord, as well as rectal misoprostol 800 mcg. She had manual sweep with clot burden relieved. Bleeding was normal throughout hospitalization. Her labetalol was decreased from 400 mg TID to 200 mg TID and she continued procardia 30 mg. Labs noted on day of delivery had slight elevation of LFTs with normalization on day 1. She is well, but plans to transition to formula within the next week. She is using tylenol, ibuprofen and prn oxycodone for back pain. Peripartum Data Delivery Method: Natural Vaginal Laceration Description: None complications: none Status at Discharge Cognitive/behavioral status at discharge: oriented Functional status at discharge: independent ambulation Overall status at discharge: patient is back to baseline Time Spent with Patient Time attestation: Total time spent providing and/or coordinating discharge services: 35 minutes Time spent: Greater than 30 minutes Objective Labs 05/25/24 08:22 05/25/24 08:22 Labs: Laboratory Results - last 24 hr 05/24/24 05/24/24 11:48 12:05 WBC 16.1 H D RBC 4.11 Hgb 10.8 L Hct 33.3 L MCV 81.1 MCH 26.3 MCHC 32.4 RDW 16.3 H Plt Count 227 Neut % (Auto) 75.5 H Lymph % (Auto) 15.2 L [place] % (Auto) 8.9 Eos % (Auto) 0.3 L Baso % (Auto) 0.1 Neut # (Auto) 00104 H Lymph # (Auto) 2400 [place] # (Auto) 1400 H Eos # (Auto) 100 Baso # (Auto) 0 Sodium 134 L Potassium 4.3 Chloride 107 Carbon Dioxide 21 L BUN 11 Creatinine 0.57 Estimated GFR > 60 BUN/Creatinine Ratio 19.3 Glucose 88 Calcium 9.7 Total Bilirubin 0.6 AST 42 H ALT 19 Alkaline Phosphatase 120 Total Protein 6.4 Albumin 3.6 Globulin 2.8 Albumin/Globulin Ratio 1.3 Exam Narrative Exam Narrative: NAD, resting comfortably in bed, breathing easily Discharge Plan Discharge Plan Patient Disposition: Home Discharge orders & Medications Prescriptions: New acetaminophen 325 mg Tablet 650 mg PO Q6HR PRN (Reason: Pain, Mild (1-3)) 7 Days Qty: 60 0RF ibuprofen 600 mg Tablet 600 mg PO Q6HR PRN (Reason: Pain, Mild (1-3)) Qty: 60 0RF labetalol 100 mg Tablet 200 mg PO TID Qty: 120 0RF oxycodone 5 mg Tablet 5 mg PO Q4HR PRN (Reason: Pain, Moderate (4-6)) Qty: 10 0RF Continued nifedipine [Procardia XL] 30 mg tablet extended release 24hr 30 mg PO DAILY Qty: 30 3RF vit-ferrous sulfat-FA 27 mg iron- 0.8 mg tablet PO ferrous sulfate 325 mg (65 mg iron) tablet,delayed release (DR/EC) 325 mg PO Q OTHER DAY Discontinued labetalol 200 mg tablet 400 mg PO TID Qty: 180 3RF Follow up/Referrals: Lucretia Jacques MD [Primary Care Provider] - 07/04/24 11:30 am (Please follow up for your 6 week appointment on July 04, 2024 at 11:30! Please arrive at 11:15am! Additionally, you will have a blood pressure check on WednesdayMay 26 with your appointment.) Visit Report/Discharge Packet Instructions: DI for Hemorrhage, Fitness, DI for Depression Stand Alone Forms: Discharge: Care, Patient Portal/API, Stroke Signs & Symptoms Discharge Data Primary Care Provider: Lucretia Jacques
[2024-05-25 08:34] LABS: Add Manual Diff / Slide Review NO; Basophils Absolute Auto 0 /uL (0-100); Basophils Percent Auto 0.4 % (0-2); Eosinophils Absolute Auto 100 /uL (0-450); Eosinophils Percent Auto 1.2 % (2-4); Hematocrit 31.9 % (36-46); Hemoglobin 10.4 g/dL (12.0-16.0); Lymphocytes Absolute Auto 3600 /uL (1100-4500); Lymphocytes Percent Auto 31.5 % (25-40); Mean Corpuscular HGB Conc 32.8 % (30-36); Mean Corpuscular Hemoglobin 26.7 PG (26-34); Mean Corpuscular Volume 81.5 fL (80-100); Monocytes Absolute Auto 900 /uL (0-900); Monocytes Percent Auto 7.5 % (3-14); Neutrophils Absolute Auto 6800 /uL (1500-7000); Neutrophils Percent Auto 59.4 % (50-75); Platelet Count 215 X10^3/uL (150-400); Red Blood Cell Count 3.91 X10^6/uL (4.0-5.2); Red Cell Distribution Width 16.4 % (11.6-14.8); White Blood Cell Count 11.4 X10^3/uL (4.5-11.0)
[2024-05-25 08:38] VITALS: BP 129/75; PULSE 72; RESP 15; TEMP 36.8
[2024-05-25 08:45] LABS: Alanine Aminotransferase 21 IU/L (<35); Albumin 3.7 g/dL (3.5-5.0); Albumin Globulin Ratio 1.3 (1.0-2.8); Alkaline Phosphatase 98 U/L (38-126); Aspartate Aminotransferase 35 IU/L (14-36); Bilirubin Total 0.3 mg/dL (0.2-1.3); Blood Urea Nitrogen 12 mg/dL (7-17); Calcium 9.2 mg/dL (8.4-10.2); Carbon Dioxide 24 mmol/L (22-32); Chloride 107 mmol/L (98-107); Estimated Glomerular Filt Rate > 60 mL/min (>60); Globulin 2.9 g/dL (1.7-4.1); Glucose 86 mg/dL (70-100); HEMOLYSIS 24 (0-50); Sodium 135 mmol/L (137-145); Total Protein 6.6 g/dL (6.3-8.2)
[2024-05-25] MEDS: PRENATAL VIT,CALC/IRON/FOLIC 1 TABLET 1 TAB PO (09:04)
[2024-05-25] MEDS: LABETALOL 100 MG TABLET 200 MG PO (09:05)
[2024-05-25] MEDS: FERROUS SULFATE 325 MG TABLET PO (09:05)
== END 2024-05-25 11:55 | disposition home or self-care (01) | DRG 807 ==
PROVIDERS: Admitting Provider Student in an Organized Health Care Education/Training Program; PCP Student in an Organized Health Care Education/Training Program; Referring Provider Student in an Organized Health Care Education/Training Program; Visit Provider Student in an Organized Health Care Education/Training Program
DX: O11.4 Pre-existing hypertension with pre-eclampsia, complicating childbirth (principal); Z37.0 Single live birth; O10.02 Pre-existing essential hypertension complicating childbirth; Z3A.37 37 weeks gestation of pregnancy; O99.824 Streptococcus B carrier state complicating childbirth
CPT/HCPCS: 36415; 59050; 59400; 80053; 85025; 86850; 86900; 86901; G0379; J0290; J2405; J2590; J3010; S0191

== ENCOUNTER 2025-03-23 21:25 | Emergency (ER) | payer OTHER, SELFPAY ==
--- NOTE | 2025-03-23 21:28 | EKG_ITS ---
[facility]
[2025-03-23 21:29] VITALS: BP 140/96; PULSE 77; RESP 18; TEMP 36.5; O2SAT 98; BMI 40.3
--- NOTE | 2025-03-23 21:36 | ED_ITS ---
HPI - Chest Pain
--- NOTE | 2025-03-23 21:36 | ED.CHESTPAIN ---
HPI - Chest Pain General Chief Complaint: Shortness of Breath/Dyspnea Stated Complaint: Chest pain, SOB, blurry vision Time Seen by Provider: 03/23/25 21:34 History of Present Illness HPI narrative: Patient is a healthy 29-year-old female presenting today with right-sided chest pain. She reports that she can not really take a deep breath and feels like the right side of her chest is tight. She denies any fever chills or cough. She has not had any extended travel no history of blood clots no leg pain. She has not had any significant cough. She is a nonsmoker. Related Data Home Medications ?Medication ?Instructions ?Recorded ?Confirmed vitamin-ferrous sulfate tab PO 10/07/23 03/09/25 27 mg iron-folic acid 0.8 mg tablet Previous Rx's ?Medication ?Instructions ?Recorded drospirenone 3 mg-ethinyl 1 tab PO DAILY #84 tabs 09/14/24 estradiol 0.02 mg tablet (BHAVYA (28)) labetalol 100 mg tablet 200 mg (2 x 100 mg) PO DAILY #180 09/14/24 tabs metronidazole 0.75 % topical cream 1 applic topical BID #45 grams 01/18/25 semaglutide (weight loss) 0.25 0.25 mg (0.5 mL) SUBCUT QWEEK #2 mL 02/12/25 mg/0.5 mL subcutaneous pen injector (Ajay) phentermine 37.5 mg tablet 37.5 mg PO DAILY #30 tabs 03/09/25 venlafaxine 150 mg 150 mg PO DAILY #90 caps 03/09/25 capsule,extended release 24 hr Allergies Allergy/AdvReac Type Severity Reaction Status Date / Time No Known Allergies Allergy Verified 03/23/25 21:30 Patient History Medical History (Updated 03/23/25 @ 22:39 by Fransisca Anne DO) PTSD (post-traumatic stress disorder) anxiety depression Oral contraceptive use Pelvic pain in female Malpositioned intrauterine device (IUD) Hemorrhage, delayed Pre-eclampsia, severe, antepartum Size of fetus inconsistent with dates in third trimester Obesity affecting in third trimester Gestational hypertension affecting first Obesity Surgical History History of tonsillectomy H/O oral surgery Family History Family/Other Breast cancer Father Hypertension Mother Contact dermatitis Grandmother Obesity Hypertension Social History marital status: number of children: 1 household members: spouse lives independently: Yes caregiver/support person: Yes housing: condominium pets and animals: Yes (2 dogs) education level: high school occupational status: employed current occupational exposures/hazards: No special ish needs: No travel history: recent seatbelt use: always water heater temp set < 120 deg: Yes working smoke detector in home: Yes fire extinguisher in home: Yes carbon monox detector in home: Yes firearms in home: No do you feel safe at home: Yes Smoking Status: Never smoker second hand exposure: No alcohol intake: former substance use type: does not use during the past year weight has: decreased > 10 lbs well-balanced diet: about half the time daily servings fruits/ve-4 caffeine: Yes (ice tea and diet cola occasionally) Type(s) of exercise: walking alcohol intake frequency: holidays/special occasions only Exam Initial Vital Signs Initial Vital Signs: Vital Signs Temperature 97.7 F 03/23/25 21:29 Pulse Rate 77 03/23/25 21:29 Respiratory Rate 18 03/23/25 21:29 Blood Pressure 140/96 H 03/23/25 21:29 Pulse Oximetry 98 03/23/25 21:29 Oxygen Delivery Method Room Air 03/23/25 21:29 GENERAL: Alert pleasant 29-year-old female and in no acute distress. HEENT: Head atraumatic,EOMI, pupils reactive, face symmetric, moist mucous membranes CARDIOVASCULAR: Regular rate and rhythm without murmurs, rubs or gallops. Chest pain is nonreproducible. RESPIRATORY: Breath sounds equal bilaterally, no wheezes rales or rhonchi. ABDOMEN: Soft, nontender. Normoactive bowel sounds all 4 quadrants. No guarding or rebound. EXTREMITIES: Normal range of motion, no clubbing or edema. Neurovascularly intact NEUROLOGICAL: Alert and oriented x4.Normal gait and speech. Cranial nerves II through XII grossly intact. SKIN: Warm, dry, no laceration, no petechiae, no rashes or lesions. Course Orders Ordered: ED Orders 03/23/25 21:28 EKG-12 Lead Stat 03/23/25 21:38 XR chest 1V Stat 03/23/25 21:50 Complete Blood Count AUTO DIFF Stat Comprehensive Metabolic Panel Stat D Dimer Stat Lipase Stat Magnesium Stat NT-proBNP (BNP-Adult 18+) Stat PTT Partial Thromboplastin Matt Stat Prothrombin Time INR Stat Troponin & CK Cardiac Panel Stat Discontinued Medications Albuterol (Albuterol Hfa Prepack) 1 box MISC DIRECTED ONE Stop: 03/23/25 22:42 Last Admin: 03/23/25 22:59 Dose: 1 box Albuterol/Ipratropium (Albuterol/Ipratropium 3 Ml Ampul) 3 ml INH NOW ONE Stop: 03/23/25 21:39 Last Admin: 03/23/25 21:46 Dose: 3 ml Documented By: Vital Signs Vital signs: Vital Signs - 8 hr 03/23/25 21:29 03/23/25 21:55 03/23/25 21:56 Temperature 97.7 F Pulse Rate 77 75 Respiratory Rate 18 Blood Pressure 140/96 H 147/82 H Pulse Oximetry 98 100 Oxygen Delivery Method Room Air 03/23/25 21:56 03/23/25 22:00 03/23/25 22:00 Temperature Pulse Rate 75 74 Respiratory Rate 13 Blood Pressure 146/72 H Pulse Oximetry 100 99 Oxygen Delivery Method 03/23/25 22:30 03/23/25 22:30 03/23/25 23:04 Temperature Pulse Rate 74 75 Respiratory Rate 11 L 18 Blood Pressure 145/67 H Pulse Oximetry 98 100 Oxygen Delivery Method MDM - Chest Pain Lab Data 03/23/25 21:50 03/23/25 21:50 Labs: Lab Results 03/23/25 Range/Units 21:50 WBC 10.8 (4.5-11.0) X10^3/uL RBC 4.67 (4.0-5.2) X10^6/uL Hgb 12.2 (12.0-16.0) g/dL Hct 36.6 (36-46) % MCV 78.3 L (80-100) fL MCH 26.1 (26-34) PG MCHC 33.4 (30-36) % RDW 14.6 (11.6-14.8) % Plt Count 275 (150-400) X10^3/uL Neut % (Auto) 53.0 (50-75) % Lymph % (Auto) 38.3 (25-40) % Owen % (Auto) 6.9 (3-14) % Eos % (Auto) 1.4 L (2-4) % Baso % (Auto) 0.4 (0-2) % Neut # (Auto) 5700 (4803-1574) /uL Lymph # (Auto) 4100 (8285-2707) /uL Owen # (Auto) 800 (0-900) /uL Eos # (Auto) 200 (0-450) /uL Baso # (Auto) 0 (0-100) /uL PT 11.7 (9.4-12.5) SECONDS INR 1.0 (0.9-1.3) APTT 34 (25.1-36.5) SECONDS D-Dimer 437 (<500) ng/ml Sodium 137 (137-145) mmol/L Potassium 3.9 (3.4-5.1) mmol/L Chloride 102 (98-107) mmol/L Carbon Dioxide 24 (22-32) mmol/L BUN 12 (7-17) mg/dL Creatinine 0.64 (0.52-1.04) mg/dL Estimated GFR > 60 (>60) mL/min BUN/Creatinine Ratio 18.8 (6-22) Glucose 99 (70-99) mg/dL Calcium 9.7 (8.4-10.2) mg/dL Magnesium 1.9 (1.6-2.3) mg/dL Total Bilirubin 0.3 (0.2-1.3) mg/dL AST 29 (14-36) IU/L ALT 22 (<35) IU/L Alkaline Phosphatase 87 (38-126) U/L Total Creatine Kinase 194 H (30-135) U/L Troponin I < 0.012 (0.01-0.034) ng/mL NT-Pro-B Natriuret Pep 46 (<125) pg/mL Total Protein 8.3 H (6.3-8.2) g/dL Albumin 5.0 (3.5-5.0) g/dL Globulin 3.3 (1.7-4.1) g/dL Albumin/Globulin Ratio 1.5 (1.0-2.8) Lipase 78 (23-300) U/L Imaging Data Chest x-ray: Radiologist's Impression: PROCEDURE: XR CHEST 1V INDICATIONS: Chest Pain TECHNIQUE: One view of the chest was acquired. COMPARISON: [facility], , XR CHEST 1V, 05/07/2023, 18:45. FINDINGS AND IMPRESSION: On this single view study, no airspace consolidation or pleural effusion is seen. Normal heart size. Unremarkable osseous structures. Dictated by: Fox Varela M.D. on 03/23/2025 at 21:53 ECG Data Attestation: I personally reviewed and interpreted this ECG as follows: Prior ECG tracings: not available for review Interpretation: Normal sinus rhythm rate 80 MD interval 170 QRS 88 QTC 460 MDM Narrative Medical decision making narrative: Patient is a healthy 29-year-old female presenting today with right-sided chest pain. She appears well in no acute respiratory distress Blood work has been reviewed CBC no leukocytosis no anemia CMP no electrolyte abnormality no JEOVANNY glucose 99 Bilirubin liver enzymes within normal limits lipase within normal limits Troponin negative, BNP 46 D-dimer is 437 EKGs reviewed no arrhythmia no acute ischemia Chest x-ray reviewed no acute cardiopulmonary process Differential diagnosis calm in reactive airway disease pulmonary embolism acute coronary syndrome pneumonia pneumothorax pericarditis Patient given albuterol here in the ED minimal mcc At this time patient presenting today with right-sided chest pain. Blood work x-ray and EKGs are overall reassuring. D-dimer is less than 500 she is not hypoxic or tachycardic low suspicion for pulmonary embolism. No need for advanced imaging at this time. She has no pneumonia or need for antibiotics at this time. Recommend outpatient follow-up. Discharge Plan Departure Patient Disposition: Home Clinical Impression: Atypical chest pain Instructions: DI for Atypical Chest Pain Activity Restrictions/Additional Instructions: *You have been diagnosed with atypical chest *What to do: At this time there is no need for antibiotics your blood work overall is reassuring, including your heart and kidney *Continue to take medications as directed Albuterol 1-2 puffs every 4 hours if needed for cough or shortness of *Follow up with your primary care provider in 2-3 days or call [phone] *Return to ER if you should have increasing chest pain shortness of breath weakness or any new, worsening or concerning symptoms Prescriptions: No Action drospirenone-ethinyl estradiol [BHAVYA (28)] 3-0.02 mg tablet 1 tab PO DAILY Qty: 84 3RF labetalol 100 mg tablet 200 mg PO DAILY Qty: 180 3RF venlafaxine 150 mg capsule,extended release 24hr 150 mg PO DAILY Qty: 90 3RF phentermine 37.5 mg tablet 37.5 mg PO DAILY Qty: 30 5RF Rx Instructions: must administer 30 minutes before or 1-2 hours after breakfast Wegovy 0.25 mg/0.5 mL pen injector 0.25 mg SUBCUT QWEEK Qty: 2 3RF Rx Instructions: administer weeks 1 through 4 of therapy metronidazole 0.75 % cream 1 applic topical BID Qty: 45 3RF vit-ferrous sulfat-FA 27 mg iron- 0.8 mg tablet PO Referrals: Lucretia Jacques MD [Primary Care Provider, Family Practice] Stand Alone Forms: Patient Portal/API
--- NOTE | 2025-03-23 21:38 | DI.RAD.S_ITS ---
PROCEDURE: XR CHEST 1V
[2025-03-23] MEDS: ALBUTEROL/IPRATROPIUM 3 ML AMPUL INH (21:46)
[2025-03-23 21:55] VITALS: PULSE 75; O2SAT 100
[2025-03-23 21:56] VITALS: BP 147/82; PULSE 75; O2SAT 100
[2025-03-23 22:00] VITALS: BP 146/72; PULSE 74; RESP 13; O2SAT 99
[2025-03-23 22:02] LABS: Add Manual Diff / Slide Review NO; Hematocrit 36.6 % (36-46); Hemoglobin 12.2 g/dL (12.0-16.0); Lymphocytes Absolute Auto 4100 /uL (1100-4500); Mean Corpuscular HGB Conc 33.4 % (30-36); Mean Corpuscular Hemoglobin 26.1 PG (26-34); Mean Corpuscular Volume 78.3 fL (80-100); Platelet Count 275 X10^3/uL (150-400)
[2025-03-23 22:06] LABS: INR 1.0 (0.9-1.3); Prothrombin Time 11.7 SECONDS (9.4-12.5)
[2025-03-23 22:08] LABS: PTT Partial Thromboplastin Tim 34 SECONDS (25.1-36.5)
[2025-03-23 22:10] LABS: Alanine Aminotransferase 22 IU/L (<35); Albumin 5.0 g/dL (3.5-5.0); Albumin Globulin Ratio 1.5 (1.0-2.8); Alkaline Phosphatase 87 U/L (38-126); Blood Urea Nitrogen 12 mg/dL (7-17); Calcium 9.7 mg/dL (8.4-10.2); Carbon Dioxide 24 mmol/L (22-32); Chloride 102 mmol/L (98-107); Creatine Kinase 194 U/L (30-135); Estimated Glomerular Filt Rate > 60 mL/min (>60); Globulin 3.3 g/dL (1.7-4.1); Glucose 99 mg/dL (70-99); HEMOLYSIS < 15 (0-50); Lipase 78 U/L (23-300); Magnesium 1.9 mg/dL (1.6-2.3); Potassium 3.9 mmol/L (3.4-5.1); Sodium 137 mmol/L (137-145); Total Protein 8.3 g/dL (6.3-8.2)
[2025-03-23 22:21] LABS: NT-proBNP (BNP-Adult 18+) 46 pg/mL (<125); Troponin I < 0.012 ng/mL (0.01-0.034)
[2025-03-23 22:30] VITALS: BP 145/67; PULSE 74; RESP 11; O2SAT 98
[2025-03-23] MEDS: ALBUTEROL HFA PREPACK 1 BOX MISC (22:59)
[2025-03-23 23:04] VITALS: PULSE 75; RESP 18; O2SAT 100
== END 2025-03-23 23:18 | disposition home or self-care (01) ==
PROVIDERS: Emergency Provider Emergency Medicine; PCP Student in an Organized Health Care Education/Training Program
DX: R07.89 Other chest pain (principal)
CPT/HCPCS: 36415; 71045; 80053; 82550; 83690; 83735; 83880; 84484; 85025; 85379; 85610; 85730; 93005; 94640; 99284